=== PATIENT | male | born 1955 | race Caucasian/White ===

== ENCOUNTER → 2018-08-09 13:23 | Outpatient (CLI) | payer MEDICARE, SELFPAY ==
[2018-08-09 16:06] LABS: Alanine Aminotransferase 24 IU/L (21-72); Albumin 4.4 g/dL (3.5-5.0); Albumin Globulin Ratio 1.4 (1.0-2.8); Alkaline Phosphatase 64 U/L (38-126); Aspartate Aminotransferase 20 IU/L (17-59); BUN Creatinine Ratio 22.7 (6-22); Bilirubin Total 0.5 mg/dL (0.2-1.3); Blood Urea Nitrogen 34 mg/dL (9-20); Calcium 9.4 mg/dL (8.4-10.2); Carbon Dioxide 30 mmol/L (22-32); Chloride 100 mmol/L (98-107); Estimated Glomerular Filt Rate 47.4 mL/min (>60); Globulin 3.1 g/dL (1.7-4.1); Glucose 83 mg/dL (80-110); HEMOLYSIS < 15 (0-50); Potassium 4.5 mmol/L (3.4-5.1); Sodium 142 mmol/L (137-145); Total Protein 7.5 g/dL (6.3-8.2)
== END ==
PROVIDERS: PCP Internal Medicine
DX: I25.10 Atherosclerotic heart disease of native coronary artery without angina pectoris (principal); I50.23 Acute on chronic systolic (congestive) heart failure
CPT/HCPCS: 36415; 80053

== ENCOUNTER → 2018-12-13 13:34 | Outpatient (CLI) | payer MEDICARE, SELFPAY ==
[2018-12-13 14:28] LABS: Add Manual Diff / Slide Review NO; Basophils Absolute Auto 100 /uL (0-100); Basophils Percent Auto 0.9 % (0-2); Eosinophils Absolute Auto 300 /uL (0-450); Eosinophils Percent Auto 3.3 % (2-4); Hematocrit 40.8 % (41-53); Lymphocytes Absolute Auto 1800 /uL (1100-4500); Lymphocytes Percent Auto 22.4 % (25-40); Mean Corpuscular HGB Conc 34.3 % (30-36); Mean Corpuscular Hemoglobin 30.6 PG (26-34); Mean Corpuscular Volume 89.2 fL (80-100); Monocytes Absolute Auto 500 /uL (0-900); Monocytes Percent Auto 6.4 % (3-14); Neutrophils Absolute Auto 5300 /uL (1500-7000); Platelet Count 241 X10^3/uL (150-400); Red Blood Cell Count 4.57 X10^6/uL (4.5-5.9); Red Cell Distribution Width 12.6 % (11.6-14.8); White Blood Cell Count 7.9 X10^3/uL (4.5-11.0)
[2018-12-13 14:41] LABS: Alanine Aminotransferase 28 IU/L (21-72); Albumin 4.5 g/dL (3.5-5.0); Albumin Globulin Ratio 1.4 (1.0-2.8); Alkaline Phosphatase 64 U/L (38-126); Aspartate Aminotransferase 19 IU/L (17-59); BUN Creatinine Ratio 17.3 (6-22); Bilirubin Total 0.5 mg/dL (0.2-1.3); Blood Urea Nitrogen 26 mg/dL (9-20); Calcium 9.2 mg/dL (8.4-10.2); Carbon Dioxide 28 mmol/L (22-32); Chloride 101 mmol/L (98-107); Estimated Glomerular Filt Rate 47.4 mL/min (>60); Globulin 3.2 g/dL (1.7-4.1); Glucose 101 mg/dL (80-110); HEMOLYSIS < 15 (0-50); Potassium 4.2 mmol/L (3.4-5.1); Sodium 140 mmol/L (137-145); Total Protein 7.7 g/dL (6.3-8.2)
== END ==
PROVIDERS: Visit Provider Internal Medicine
DX: I50.22 Chronic systolic (congestive) heart failure (principal)
CPT/HCPCS: 36415; 80053; 85025

== ENCOUNTER → 2020-04-26 15:24 | Outpatient (CLI) | payer MEDICARE, SELFPAY ==
[2020-04-26 17:26] LABS: Alanine Aminotransferase 29 IU/L (<50); Albumin 4.2 g/dL (3.5-5.0); Albumin Globulin Ratio 1.4 (1.0-2.8); Alkaline Phosphatase 65 U/L (38-126); Aspartate Aminotransferase 32 IU/L (17-59); BUN Creatinine Ratio 19.7 (6-22); Bilirubin Total 0.4 mg/dL (0.2-1.3); Blood Urea Nitrogen 24 mg/dL (9-20); Calcium 9.4 mg/dL (8.4-10.2); Carbon Dioxide 25 mmol/L (22-32); Chloride 102 mmol/L (98-107); Estimated Glomerular Filt Rate 59.8 mL/min (>60); Globulin 3.1 g/dL (1.7-4.1); Glucose 104 mg/dL (80-110); HEMOLYSIS < 15 (0-50); Magnesium 2.2 mg/dL (1.6-2.3); Sodium 137 mmol/L (137-145); Total Protein 7.3 g/dL (6.3-8.2)
== END ==
PROVIDERS: Referring Provider Internal Medicine Clinical Cardiac Electrophysiology; Visit Provider Internal Medicine Clinical Cardiac Electrophysiology
DX: Z95.810 Presence of automatic (implantable) cardiac defibrillator (principal); I48.19 Other persistent atrial fibrillation
CPT/HCPCS: 36415; 80053; 83735

== ENCOUNTER → 2020-09-25 15:33 | Outpatient (CLI) | payer MEDICARE, SELFPAY ==
[2020-09-25 16:35] LABS: COVID19 -Nasal RAPID Negative (Negative)
== END ==
PROVIDERS: Visit Provider Physician Assistant
DX: Z11.59 Encounter for screening for other viral diseases (principal)
CPT/HCPCS: 87635

== ENCOUNTER → 2020-12-16 10:10 | Outpatient (CLI) | payer MEDICARE, SELFPAY ==
[2020-12-16 13:53] LABS: COVID19 -Nasal RAPID Negative (Negative)
== END ==
PROVIDERS: Visit Provider Nurse Practitioner
DX: Z01.812 Encounter for preprocedural laboratory examination (principal); Z20.822 Contact with and (suspected) exposure to COVID-19
CPT/HCPCS: 87635; C9803

== ENCOUNTER → 2021-01-01 12:13 | Outpatient (CLI) | payer MEDICARE, SELFPAY ==
[2021-01-01] MEDS: COVID-19 VACC #1, MRNA(MOD) 100 MCG/0.5 ML VIAL IM (12:20)
== END ==
PROVIDERS: Visit Provider Internal Medicine
DX: Z23 Encounter for immunization (principal)
CPT/HCPCS: 0011A; 91301

== ENCOUNTER → 2021-01-29 12:08 | Outpatient (CLI) | payer MEDICARE, SELFPAY ==
[2021-01-29] MEDS: COVID-19 VACC #2, MRNA(MOD) 100 MCG/0.5 ML VIAL IM (12:23)
== END ==
PROVIDERS: Visit Provider Internal Medicine
DX: Z23 Encounter for immunization (principal)
CPT/HCPCS: 0012A; 91301

== ENCOUNTER 2021-03-06 10:30 | Outpatient (RCR) | payer MEDICARE, SELFPAY | END 2021-03-06 11:34 | LOC: CAR 10:30 | PROVIDERS: Referring Provider Internal Medicine; Visit Provider Internal Medicine | DX: I50.20 Unspecified systolic (congestive) heart failure (principal); Z95.5 Presence of coronary angioplasty implant and graft | CPT/HCPCS: 93798 ==

== ENCOUNTER → 2021-09-05 09:57 | Outpatient (CLI) | payer MEDICARE, SELFPAY ==
[2021-09-05 12:28] LABS: Alanine Aminotransferase 16 IU/L (<50); Albumin 4.4 g/dL (3.5-5.0); Albumin Globulin Ratio 1.3 (1.0-2.8); Alkaline Phosphatase 62 U/L (38-126); Aspartate Aminotransferase 27 IU/L (17-59); BUN Creatinine Ratio 24.3 (6-22); Bilirubin Total 0.9 mg/dL (0.2-1.3); Blood Urea Nitrogen 35 mg/dL (9-20); Calcium 9.5 mg/dL (8.4-10.2); Carbon Dioxide 29 mmol/L (22-32); Chloride 102 mmol/L (98-107); Estimated Glomerular Filt Rate 49.2 mL/min (>60); Globulin 3.3 g/dL (1.7-4.1); Glucose 94 mg/dL (80-110); HEMOLYSIS < 15 (0-50); Potassium 4.8 mmol/L (3.4-5.1); Sodium 138 mmol/L (137-145); Total Protein 7.7 g/dL (6.3-8.2)
[2021-09-05 12:35] LABS: Add Manual Diff / Slide Review NO; Basophils Absolute Auto 0 /uL (0-100); Basophils Percent Auto 0.8 % (0-2); Eosinophils Absolute Auto 100 /uL (0-450); Eosinophils Percent Auto 2.2 % (2-4); Hematocrit 41.2 % (41-53); Lymphocytes Absolute Auto 1600 /uL (1100-4500); Lymphocytes Percent Auto 25.7 % (25-40); Mean Corpuscular HGB Conc 33.9 % (30-36); Mean Corpuscular Hemoglobin 31.1 PG (26-34); Mean Corpuscular Volume 91.9 fL (80-100); Monocytes Absolute Auto 500 /uL (0-900); Monocytes Percent Auto 8.9 % (3-14); Neutrophils Absolute Auto 3800 /uL (1500-7000); Neutrophils Percent Auto 62.4 % (50-75); Platelet Count 197 X10^3/uL (150-400); Red Blood Cell Count 4.49 X10^6/uL (4.5-5.9); Red Cell Distribution Width 13.6 % (11.6-14.8); White Blood Cell Count 6.1 X10^3/uL (4.5-11.0)
== END ==
PROVIDERS: Referring Provider Internal Medicine; Visit Provider Internal Medicine
DX: I48.20 Chronic atrial fibrillation, unspecified (principal); I50.22 Chronic systolic (congestive) heart failure
CPT/HCPCS: 36415; 80053; 84443; 85025

== ENCOUNTER → 2022-07-13 11:23 | Outpatient (CLI) | payer OTHER, SELFPAY ==
--- NOTE | 2022-07-13 11:25 | DI.RAD.S_ITS ---
PROCEDURE: XR CHEST 2V INDICATIONS: Chest congestion TECHNIQUE: 2 views of the chest were acquired. COMPARISON: [facility], , CHEST 2 VIEW, 08/26/2013, 21:47. FINDINGS: Surgical changes and devices: Left chest wall pacemaker leads are in the region of right ventricle and left ventricle. Lungs and pleura: Mild pulmonary vascular congestion is seen. No definite focal infiltrate. No pleural effusions or pneumothorax. Mediastinum: Mediastinal contours are normal. Heart size is enlarged. Bones and chest wall: No suspicious bony abnormalities. Soft tissues appear unremarkable. IMPRESSION: Cardiomegaly and mild congestion. No definite focal infiltrate, pleural effusion or pneumothorax. Dictated by: Raul Keys M.D. on 07/13/2022 at 13:31 Approved by: Raul Keys M.D. on 07/13/2022 at 13:39
== END ==
PROVIDERS: Referring Provider Nurse Practitioner Family; Visit Provider Nurse Practitioner Family
DX: R05.9 Cough, unspecified (principal); I51.7 Cardiomegaly; R09.89 Other specified symptoms and signs involving the circulatory and respiratory systems; Z95.0 Presence of cardiac pacemaker
CPT/HCPCS: 71046

== ENCOUNTER 2023-06-26 19:43 | Emergency (ER) | payer OTHER, SELFPAY ==
[2023-06-26 20:00] VITALS: BP 120/60; PULSE 69; RESP 22; TEMP 36.8; O2SAT 100; BMI 24.1
[2023-06-26 20:30] VITALS: PULSE 69; RESP 18; O2SAT 99
--- NOTE | 2023-06-26 21:00 | PC.NURSE ---
[facility] Medical Interrogation report received via phone. It was reported that pt went into VF at 1910 tonight and was immediately shocked by pacer/defibrillator, returning him to a NSR.
[2023-06-26] MEDS: SODIUM CHLORIDE 0.9% 1,000 ML 150 ML IV (21:03)
[2023-06-26 21:06] LABS: Add Manual Diff / Slide Review NO; Basophils Absolute Auto 100 /uL (0-100); Basophils Percent Auto 1.2 % (0-2); Eosinophils Absolute Auto 200 /uL (0-450); Eosinophils Percent Auto 2.5 % (2-4); Hemoglobin 12.6 g/dL (13.5-17.5); Lymphocytes Absolute Auto 1000 /uL (1100-4500); Lymphocytes Percent Auto 13.5 % (25-40); Mean Corpuscular HGB Conc 34.2 % (30-36); Mean Corpuscular Volume 90.6 fL (80-100); Monocytes Absolute Auto 800 /uL (0-900); Monocytes Percent Auto 10.8 % (3-14); Neutrophils Absolute Auto 5200 /uL (1500-7000); Platelet Count 202 X10^3/uL (150-400); Red Blood Cell Count 4.08 X10^6/uL (4.5-5.9); Red Cell Distribution Width 14.2 % (11.6-14.8); White Blood Cell Count 7.2 X10^3/uL (4.5-11.0)
[2023-06-26 21:15] LABS: Magnesium 2.1 mg/dL (1.6-2.3)
[2023-06-26 21:16] LABS: BUN Creatinine Ratio 26.2 (6-22); Blood Urea Nitrogen 33 mg/dL (9-20); Calcium 8.3 mg/dL (8.4-10.2); Carbon Dioxide 20 mmol/L (22-32); Chloride 104 mmol/L (98-107); Estimated Glomerular Filt Rate > 60 mL/min (>60); Glucose 109 mg/dL (80-110); HEMOLYSIS < 15 (0-50); Potassium 3.8 mmol/L (3.4-5.1); Sodium 135 mmol/L (137-145)
[2023-06-26 21:28] LABS: Troponin I 0.042 ng/mL (0.01-0.034)
--- NOTE | 2023-06-26 21:55 | ED_ITS ---
HPI - General Adult General Chief complaint: Dizziness Stated complaint: passed out, pacemaker is going off Time Seen by Provider: 06/26/23 20:34 Source: patient Mode of arrival: Ambulatory History of Present Illness HPI narrative: 68-year-old male. Has a defibrillator/pacemaker in place. He states he was standing in a local restaurant waiting to watch something on TV when he states he just generally started to not feel very well in the next thing he knows he was passed out on the ground. He thinks that his defibrillator went off. Prior to passing out he was not having chest pain or shortness of breath or lightheadedness. This has happened to him in the past. He was brought to the emergency department by his girlfriend. At the time of my evaluation the patient is asymptomatic. Related Data Home Medications Medication Instructions Recorded Confirmed No Known Home Medications 07/13/22 07/13/22 Allergies Allergy/AdvReac Type Severity Reaction Status Date / Time No Known Drug Allergies Allergy Unverified 07/13/22 11:09 Review of Systems Cardiovascular Cardiovascular: Reports system reviewed and no additional complaints, except as documented Respiratory Respiratory: Reports system reviewed and no additional complaints, except as documented Gastrointestinal Gastrointestinal: Reports system reviewed and no additional complaints, except as documented Integumentary/Breasts Skin/Breast: Reports system reviewed and no additional complaints, except as documented Patient History Social History Smoking Status: Never smoker Smoking Status: Never smoker alcohol intake frequency: 0-2 drinks per day Alcohol type: beer Substance Use Type: marijuana Exam Initial Vital Signs Initial Vital Signs: Vital Signs Temperature 98.2 F 06/26/23 20:00 Pulse Rate 69 06/26/23 20:00 Respiratory Rate 22 06/26/23 20:00 Blood Pressure 120/60 06/26/23 20:00 Pulse Oximetry 100 06/26/23 20:00 Oxygen Delivery Method Room Air 06/26/23 20:00 Const General: cooperative, comfortable and No ill appearing Resp Effort & Inspection: normal respiratory effort Auscultation: clear to auscultation bilaterally Cardio Rate: regular rate Rhythm: regular rhythm Heart Sounds: murmur Skin General: no rashes or lesions noted Neuro General: patient alert, patient awake and moves all extremities Course Orders Ordered: ED Orders 06/26/23 20:08 EKG-12 Lead Stat 06/26/23 20:49 Basic Metabolic Panel Stat Complete Blood Count AUTO DIFF Stat MAG [Magnesium] Stat Troponin I Stat Discontinued Medications Sodium Chloride (Normal Saline 0.9%) 1,000 mls @ 150 mls/hr IV CONT NEISHA Last Admin: 06/26/23 21:03 Dose: 150 mls/hr Documented By: AMITA Vital Signs Vital signs: Vital Signs - 8 hr 06/26/23 20:00 06/26/23 20:30 06/26/23 22:19 Temperature 98.2 F Pulse Rate 69 69 69 Respiratory Rate 22 18 16 Blood Pressure 120/60 118/84 Pulse Oximetry 100 99 99 Oxygen Delivery Method Room Air Room Air Room Air Medical Decision Making Lab Data 06/26/23 20:49 06/26/23 20:49 Labs: Lab Results 06/26/23 06/26/23 06/26/23 Range/Units 20:49 20:49 20:49 WBC 7.2 (4.5-11.0) X10^3/uL RBC 4.08 L (4.5-5.9) X10^6/uL Hgb 12.6 L (13.5-17.5) g/dL Hct 37.0 L (41-53) % MCV 90.6 (80-100) fL MCH 31.0 (26-34) PG MCHC 34.2 (30-36) % RDW 14.2 (11.6-14.8) % Plt Count 202 (150-400) X10^3/uL Neut % (Auto) 72.0 (50-75) % Lymph % (Auto) 13.5 L (25-40) % [place] % (Auto) 10.8 (3-14) % Eos % (Auto) 2.5 (2-4) % Baso % (Auto) 1.2 (0-2) % Neut # (Auto) 5200 (8349-2655) /uL Lymph # (Auto) 1000 L (4398-7537) /uL [place] # (Auto) 800 (0-900) /uL Eos # (Auto) 200 (0-450) /uL Baso # (Auto) 100 (0-100) /uL Sodium 135 L (137-145) mmol/L Potassium 3.8 (3.4-5.1) mmol/L Chloride 104 (98-107) mmol/L Carbon Dioxide 20 L (22-32) mmol/L BUN 33 H (9-20) mg/dL Creatinine 1.26 H (0.66-1.25) mg/dL Estimated GFR > 60 (>60) mL/min BUN/Creatinine Ratio 26.2 H (6-22) Glucose 109 (80-110) mg/dL Calcium 8.3 L (8.4-10.2) mg/dL Magnesium 2.1 (1.6-2.3) mg/dL Troponin I 0.042 H (0.01-0.034) ng/mL ECG Data Attestation: I personally reviewed and interpreted this ECG as follows: Interpretation: Ventricularly paced Rate is 70 MDM Narrative Medical decision making narrative: We were able to interrogate the patient's pacemaker and he did have a episode of ventricular fibrillation that was converted with 36 joules. It appears that the defibrillator is working appropriately. Patient is asymptomatic. His labs are unremarkable. No indication to change any of his medications today. Will discharge patient home with instructions to follow-up with his primary provider. He was given return precautions he expressed understanding and agreement with plan. Discharge Plan Departure Patient Disposition: Home Clinical Impression: Defibrillator discharge Activity Restrictions/Additional Instructions: I recommend that you continue to take all of your medications as directed. You did have a discharge of your defibrillator earlier today but it is working appropriately. Contact your primary doctor and your senior research project manager for follow-up. Return to the emergency department for new or worsening symptoms. Prescriptions: No Action No Known Home Medications Referrals: Miscellaneous,MD Isaias [Primary Care Provider] - Stand Alone Forms: Patient Portal/API
[2023-06-26 22:19] VITALS: BP 118/84; PULSE 69; RESP 16; O2SAT 99
== END 2023-06-26 22:23 | disposition home or self-care (01) ==
PROVIDERS: Emergency Provider Emergency Medicine
DX: R55 Syncope and collapse (principal); Z45.02 Encounter for adjustment and management of automatic implantable cardiac defibrillator; R79.89 Other specified abnormal findings of blood chemistry
CPT/HCPCS: 36415; 80048; 83735; 84484; 85025; 93005; 93010; 99284

== ENCOUNTER → 2023-09-22 10:51 | Outpatient (CLI) | payer OTHER, SELFPAY ==
[2023-09-22 11:53] LABS: Alanine Aminotransferase 32 IU/L (<50); Albumin 3.7 g/dL (3.5-5.0); Alkaline Phosphatase 134 U/L (38-126); Aspartate Aminotransferase 29 IU/L (17-59); BUN Creatinine Ratio 21.4 (6-22); Bilirubin Total 2.2 mg/dL (0.2-1.3); Blood Urea Nitrogen 36 mg/dL (9-20); Calcium 9.2 mg/dL (8.4-10.2); Carbon Dioxide 25 mmol/L (22-32); Chloride 102 mmol/L (98-107); Estimated Glomerular Filt Rate 44 mL/min (>60); Globulin 3.8 g/dL (1.7-4.1); Glucose 112 mg/dL (80-110); HEMOLYSIS < 15 (0-50); Potassium 4.4 mmol/L (3.4-5.1); Sodium 137 mmol/L (137-145); Total Protein 7.5 g/dL (6.3-8.2)
== END ==
PROVIDERS: Referring Provider Internal Medicine; Visit Provider Internal Medicine
DX: I50.22 Chronic systolic (congestive) heart failure (principal)
CPT/HCPCS: 36415; 80053

== ENCOUNTER 2023-12-06 16:37 | Emergency (ER) | payer OTHER, SELFPAY ==
[2023-12-06] VITALS (80 sets, daily range): BP systolic 101–133; BP diastolic 55–85; PULSE 68–80; RESP 10–45; TEMP 29.9–37.1; O2SAT 87–100
--- NOTE | 2023-12-06 17:01 | DI.RAD.S_ITS ---
PROCEDURE: XR CHEST 1V INDICATIONS: chest pain TECHNIQUE: One view of the chest was acquired. COMPARISON: [facility], , XR CHEST 2V, 07/13/2022, 11:29. [facility], , CHEST 2 VIEW, 08/26/2013, 21:47. FINDINGS: Surgical changes and devices: Left chest wall pacemaker Lungs and pleura: Moderate bilateral pleural effusions with adjacent atelectasis versus consolidation. Mediastinum: Atherosclerotic vascular calcifications of the aorta. Heart size is enlarged. Bones and chest wall: No suspicious bony lesions. Overlying soft tissues appear unremarkable. IMPRESSION: Moderate bilateral pleural effusions with adjacent atelectasis versus consolidation. Ill-defined partially lucent opacity within the right medial lung field adjacent to the mediastinum, likely representing a pulmonary opacity, pneumomediastinum is not definitively excluded and clinical correlation is recommended. Dictated by: Sergio Gonzalez M.D. on 12/06/2023 at 17:42 Approved by: Sergio Gonzalez M.D. on 12/06/2023 at 17:45
--- NOTE | 2023-12-06 17:10 | PC.NURSE ---
Pt is SOB and extremities are blue, slow cap refill of 4+ seconds. Pt's S/O at bedside states sometimes his nose is blue, but its worse today. History of Pacemaker/defibrillator and CHF. PT is A&Ox3. He denies chest pain or dizziness. He reports abdominal pain the past few days with a BM 3 days ago which was normal.
[2023-12-06] MEDS: SODIUM CHLORIDE 0.9% 500 ML 1000 ML IV (17:19)
[2023-12-06 17:28] LABS: Lactate (Lactic Acid) 3.2 mmol/L (0.7-2.1)
[2023-12-06 17:29] LABS: Alanine Aminotransferase 35 IU/L (<50); Albumin Globulin Ratio 0.8 (1.0-2.8); Alkaline Phosphatase 134 U/L (38-126); Aspartate Aminotransferase 35 IU/L (17-59); BUN Creatinine Ratio 23.1 (6-22); Bilirubin Total 3.7 mg/dL (0.2-1.3); Blood Urea Nitrogen 48 mg/dL (9-20); Calcium 9.6 mg/dL (8.4-10.2); Carbon Dioxide 22 mmol/L (22-32); Chloride 99 mmol/L (98-107); Creatine Kinase 46 U/L (55-170); Estimated Glomerular Filt Rate 34 mL/min (>60); Globulin 4.8 g/dL (1.7-4.1); Glucose 148 mg/dL (80-110); HEMOLYSIS < 15 (0-50); Lipase 122 U/L (23-300); Potassium 4.8 mmol/L (3.4-5.1); Sodium 136 mmol/L (137-145); Total Protein 8.8 g/dL (6.3-8.2)
[2023-12-06 17:30] LABS: Add Manual Diff / Slide Review NO; Basophils Absolute Auto 0 /uL (0-100); Basophils Percent Auto 0.2 % (0-2); Eosinophils Absolute Auto 0 /uL (0-450); Eosinophils Percent Auto 0.1 % (2-4); Hematocrit 43.9 % (41-53); Hemoglobin 14.2 g/dL (13.5-17.5); Lymphocytes Absolute Auto 700 /uL (1100-4500); Lymphocytes Percent Auto 4.6 % (25-40); Mean Corpuscular HGB Conc 32.4 % (30-36); Mean Corpuscular Hemoglobin 28.5 PG (26-34); Monocytes Absolute Auto 1100 /uL (0-900); Monocytes Percent Auto 7.8 % (3-14); Neutrophils Absolute Auto 12300 /uL (1500-7000); Neutrophils Percent Auto 87.3 % (50-75); Platelet Count 262 X10^3/uL (150-400); Red Blood Cell Count 4.99 X10^6/uL (4.5-5.9); Red Cell Distribution Width 15.7 % (11.6-14.8); White Blood Cell Count 14.2 X10^3/uL (4.5-11.0)
[2023-12-06 17:34] LABS: Prothrombin Time 46.2 SECONDS (9.4-12.5)
[2023-12-06 17:37] LABS: PTT Partial Thromboplastin Tim 51 SECONDS (25.1-36.5)
[2023-12-06 17:38] LABS: NT-proBNP (BNP-Adult 18+) 15800 pg/mL (<125)
[2023-12-06 17:41] LABS: Troponin I 0.067 ng/mL (0.01-0.034)
[2023-12-06 17:46] LABS: Procalcitonin 1.88 ng/mL (<0.5)
[2023-12-06 18:08] LABS: PCO2 ABG 50.5 mmHg (35-45); pH ABG 7.35 (7.35-7.45)
[2023-12-06 18:09] LABS: Blood Gas Collection Site Right Brachial; Fractionated Inspired Oxygen 36; HCO3 ABG 28 mmol/L (23-27); Oxygen Saturation ABG 13 % (95-100); TCO2 ABG 29 mmol/L (23-27)
[2023-12-06 18:10] LABS: PO2 ABG 13 mmHg (80-100)
[2023-12-06 18:13] LABS: Ammonia (NH3) < 9 umol/L (9-30)
[2023-12-06 18:15] LABS: Adenovirus Not Detected (Not Detect); B. parapertussis Not Detected (Not Detecte); Bordetella pertussis Not Detected (Not Detect); Chlamydophila pneumoniae Not Detected (Not Detect); Coronavirus 229E Not Detected (Not Detect); Coronavirus HKU1 Not Detected (Not Detect); Coronavirus NL 63 Not Detected (Not Detect); Coronavirus OC43 Not Detected (Not Detect); Human Metapneumovirus Not Detected (Not Detect); Human Rhinovirus/Enterovirus Not Detected (Not Detect); Influenza A Not Detected (Not Detect); Influenza B Not Detected (Not Detect); Mycoplasma pneumoniae Not Detected (Not Detect); Parainfluenza Virus 1 Not Detected (Not Detect); Parainfluenza Virus 2 Not Detected (Not Detect); Parainfluenza Virus 3 Not Detected (Not Detect); Parainfluenza Virus 4 Not Detected (Not Detect); Respiratory Syncytial Virus Not Detected (Not Detect); SARS- CoV-2 Not Detected (Not Detecte)
--- NOTE | 2023-12-06 18:27 | PC.NURSE ---
Pt pulling at his bipap mask and moved it off his face. I encouraged pt he needs to keep the bipap mask on. Pt states its breathing too hard into me. RT consulted after pt removing his mask multiple times. Pt is refusing to apply bipap mask back onto his face stating hes never had issues with oxygen before. RT placing patient back on nasal flow end tital monitoring.
[2023-12-06 18:57] LABS: Reflexed Lactate in 2 Hours Y
--- NOTE | 2023-12-06 19:07 | ED_ITS ---
HPI - SOB/Dyspnea General Chief Complaint: Shortness of Breath/Dyspnea Stated Complaint: SOB, Heart Failure Time Seen by Provider: 12/06/23 17:01 Source: patient and family Mode of arrival: Wheelchair Limitations: no limitations Related Data Home Medications Medication Instructions Recorded Confirmed No Known Home Medications 07/13/22 07/13/22 Allergies Allergy/AdvReac Type Severity Reaction Status Date / Time No Known Drug Allergies Allergy Verified 12/06/23 18:00 Patient History Social History Smoking Status: Never smoker Smoking Status: Never smoker alcohol intake frequency: 0-2 drinks per day Alcohol type: beer Substance Use Type: marijuana Exam Initial Vital Signs Initial Vital Signs: Vital Signs Temperature 98.8 F 12/06/23 16:52 Pulse Rate 72 12/06/23 16:52 Respiratory Rate 26 H 12/06/23 16:52 Blood Pressure 114/70 12/06/23 16:52 Pulse Oximetry 87 L 12/06/23 16:52 Oxygen Delivery Method Room Air 12/06/23 16:52 Course Orders Ordered: ED Orders 12/06/23 17:01 XR chest 1V Stat EKG-12 Lead Stat 12/06/23 17:06 Blood Culture Stat Complete Blood Count AUTO DIFF Stat Comprehensive Metabolic Panel Stat Lactate (Lactic Acid) Stat Lipase Stat NT-proBNP (BNP-Adult 18+) Stat PTT Partial Thromboplastin Lito Stat Procalcitonin Stat Prothrombin Time INR Stat Troponin & CK Cardiac Panel Stat 12/06/23 17:15 Respiratory Panel (Film Array) Stat 12/06/23 17:45 ABG [Arterial Blood Gas] Stat 12/06/23 17:57 Ammonia (NH3) Stat 12/06/23 18:00 BiPAP Ventilatory Support RT PROTOCOL 12/06/23 18:54 High flow/High humidity nasal NOW 12/06/23 20:18 Urinalysis and Microscopic Stat urine tox [Urine Drug Screen, Rapid] Stat 12/06/23 21:11 Venous Blood Gas Stat Discontinued Medications Sodium Chloride (Normal Saline 0.9%) 500 mls @ 1,000 mls/hr IV BOLUS ONE Stop: 12/06/23 17:43 Last Infusion: 12/06/23 18:50 Dose: Infused Documented By: Admin: 12/06/23 17:19 Dose: 1,000 mls/hr Documented By: SPF Furosemide 60 mg/ Sodium (Chloride) 56 mls @ 112 mls/hr IV NOW ONE Stop: 12/06/23 19:08 Last Infusion: 12/06/23 19:32 Dose: Infused Documented By: Admin: 12/06/23 19:15 Dose: 112 mls/hr Documented By: CLARE Vital Signs Vital signs: Vital Signs - 8 hr 12/06/23 16:52 12/06/23 17:22 12/06/23 17:26 Temperature 98.8 F Pulse Rate 72 69 Respiratory Rate 26 H 28 H Blood Pressure 114/70 101/69 Pulse Oximetry 87 L 90 L Oxygen Delivery Method Room Air Nasal Cannula Oxygen Flow Rate 2 Fraction of Inspired Oxygen 12/06/23 17:26 12/06/23 17:30 12/06/23 17:30 Temperature Pulse Rate 69 69 Respiratory Rate 32 H 27 H Blood Pressure 103/72 Pulse Oximetry 93 89 L Oxygen Delivery Method Nasal Cannula Nasal Cannula Oxygen Flow Rate 4 4 Fraction of Inspired Oxygen 12/06/23 17:35 12/06/23 17:35 12/06/23 17:40 Temperature Pulse Rate 69 69 Respiratory Rate 27 H 23 Blood Pressure 104/70 Pulse Oximetry 90 L 87 L Oxygen Delivery Method Nasal Cannula Oxygen Flow Rate 4 Fraction of Inspired Oxygen 12/06/23 17:40 12/06/23 17:45 12/06/23 17:45 Temperature Pulse Rate 69 Respiratory Rate 31 H Blood Pressure 112/72 106/73 Pulse Oximetry 89 L Oxygen Delivery Method Nasal Cannula Oxygen Flow Rate 5 Fraction of Inspired Oxygen 12/06/23 17:50 12/06/23 17:50 12/06/23 17:55 Temperature Pulse Rate 69 Respiratory Rate 25 H Blood Pressure 115/80 115/78 Pulse Oximetry Oxygen Delivery Method Oxygen Flow Rate Fraction of Inspired Oxygen 12/06/23 17:55 12/06/23 18:00 12/06/23 18:00 Temperature Pulse Rate 70 70 Respiratory Rate 26 H 25 H Blood Pressure 115/80 Pulse Oximetry 98 98 Oxygen Delivery Method BiPAP Oxygen Flow Rate Fraction of Inspired Oxygen 35 12/06/23 18:00 12/06/23 18:05 12/06/23 18:05 Temperature Pulse Rate 69 Respiratory Rate 26 H Blood Pressure 117/78 117/78 Pulse Oximetry 98 Oxygen Delivery Method Oxygen Flow Rate Fraction of Inspired Oxygen 12/06/23 18:10 12/06/23 18:10 12/06/23 18:15 Temperature Pulse Rate 69 Respiratory Rate 24 Blood Pressure 115/78 115/79 Pulse Oximetry 94 Oxygen Delivery Method BiPAP Oxygen Flow Rate Fraction of Inspired Oxygen 12/06/23 18:15 12/06/23 18:21 12/06/23 18:21 Temperature Pulse Rate 69 69 Respiratory Rate 25 H 27 H Blood Pressure 118/78 Pulse Oximetry 100 97 Oxygen Delivery Method BiPAP Oxygen Flow Rate Fraction of Inspired Oxygen 12/06/23 18:25 12/06/23 18:25 12/06/23 18:30 Temperature Pulse Rate 69 68 Respiratory Rate 32 H 28 H Blood Pressure 118/78 Pulse Oximetry 96 94 Oxygen Delivery Method BiPAP Nasal Cannula Oxygen Flow Rate Fraction of Inspired Oxygen 12/06/23 18:30 12/06/23 18:31 12/06/23 18:34 Temperature Pulse Rate Respiratory Rate Blood Pressure 112/68 Pulse Oximetry 94 95 Oxygen Delivery Method Nasal Cannula Nasal Cannula Oxygen Flow Rate 4 4 Fraction of Inspired Oxygen 12/06/23 18:35 12/06/23 18:35 12/06/23 18:40 Temperature Pulse Rate 68 Respiratory Rate 30 H Blood Pressure 115/79 116/71 Pulse Oximetry 91 Oxygen Delivery Method Oxygen Flow Rate Fraction of Inspired Oxygen 12/06/23 18:40 12/06/23 18:46 12/06/23 18:46 Temperature Pulse Rate 69 69 Respiratory Rate 17 24 Blood Pressure 116/77 Pulse Oximetry 88 L 91 Oxygen Delivery Method Oxygen Flow Rate Fraction of Inspired Oxygen 12/06/23 18:50 12/06/23 18:50 12/06/23 18:54 Temperature Pulse Rate 71 69 Respiratory Rate 25 H 28 H Blood Pressure 115/79 117/81 Pulse Oximetry 100 95 Oxygen Delivery Method Oxygen Flow Rate Fraction of Inspired Oxygen 12/06/23 18:55 12/06/23 18:55 12/06/23 19:00 Temperature Pulse Rate 69 69 Respiratory Rate 28 H 37 H Blood Pressure 117/81 Pulse Oximetry 97 96 Oxygen Delivery Method High Flow Nasal Cannula High Flow Nasal Cannula Oxygen Flow Rate 45 45 Fraction of Inspired Oxygen 12/06/23 19:00 12/06/23 19:05 12/06/23 19:05 Temperature Pulse Rate 69 Respiratory Rate 35 H Blood Pressure 115/78 112/74 Pulse Oximetry 96 Oxygen Delivery Method Oxygen Flow Rate Fraction of Inspired Oxygen 12/06/23 19:10 12/06/23 19:10 12/06/23 19:15 Temperature Pulse Rate 69 69 Respiratory Rate 22 30 H Blood Pressure 113/77 Pulse Oximetry 94 99 Oxygen Delivery Method High Flow Nasal Cannula Oxygen Flow Rate Fraction of Inspired Oxygen 12/06/23 19:15 12/06/23 19:20 12/06/23 19:20 Temperature Pulse Rate 69 Respiratory Rate 17 Blood Pressure 115/78 112/77 Pulse Oximetry 99 Oxygen Delivery Method Oxygen Flow Rate Fraction of Inspired Oxygen 12/06/23 19:25 12/06/23 19:25 12/06/23 19:30 Temperature Pulse Rate 69 Respiratory Rate 33 H Blood Pressure 111/81 116/76 Pulse Oximetry Oxygen Delivery Method Oxygen Flow Rate Fraction of Inspired Oxygen 12/06/23 19:30 12/06/23 19:35 12/06/23 19:35 Temperature Pulse Rate 69 69 Respiratory Rate 20 31 H Blood Pressure 115/78 Pulse Oximetry Oxygen Delivery Method Oxygen Flow Rate Fraction of Inspired Oxygen 12/06/23 19:40 12/06/23 19:40 12/06/23 19:50 Temperature Pulse Rate 69 69 Respiratory Rate 35 H 18 Blood Pressure 112/68 Pulse Oximetry 100 97 Oxygen Delivery Method High Flow Nasal Cannula Oxygen Flow Rate Fraction of Inspired Oxygen 12/06/23 19:50 12/06/23 19:55 12/06/23 19:55 Temperature Pulse Rate 69 Respiratory Rate 16 Blood Pressure 106/67 107/69 Pulse Oximetry 96 Oxygen Delivery Method Oxygen Flow Rate Fraction of Inspired Oxygen 12/06/23 20:00 12/06/23 20:00 12/06/23 20:05 Temperature Pulse Rate 69 Respiratory Rate 37 H Blood Pressure 112/71 119/77 Pulse Oximetry 94 Oxygen Delivery Method Oxygen Flow Rate Fraction of Inspired Oxygen 12/06/23 20:05 12/06/23 20:10 12/06/23 20:10 Temperature Pulse Rate 68 69 Respiratory Rate 11 L 35 H Blood Pressure 112/76 Pulse Oximetry 97 94 Oxygen Delivery Method Oxygen Flow Rate Fraction of Inspired Oxygen 12/06/23 20:15 12/06/23 20:15 Temperature Pulse Rate 69 Respiratory Rate 18 Blood Pressure 111/74 Pulse Oximetry 96 Oxygen Delivery Method Oxygen Flow Rate Fraction of Inspired Oxygen MDM - SOB/Dyspnea Lab Data 12/06/23 17:06 12/06/23 17:06 Labs: Lab Results 12/06/23 12/06/23 12/06/23 Range/Units 17:06 17:15 17:45 WBC 14.2 H (4.5-11.0) X10^3/uL RBC 4.99 (4.5-5.9) X10^6/uL Hgb 14.2 (13.5-17.5) g/dL Hct 43.9 (41-53) % MCV 88.0 (80-100) fL MCH 28.5 (26-34) PG MCHC 32.4 (30-36) % RDW 15.7 H (11.6-14.8) % Plt Count 262 (150-400) X10^3/uL Neut % (Auto) 87.3 H (50-75) % Lymph % (Auto) 4.6 L (25-40) % [place] % (Auto) 7.8 (3-14) % Eos % (Auto) 0.1 L (2-4) % Baso % (Auto) 0.2 (0-2) % Neut # (Auto) 25694 H (7455-0676) /uL Lymph # (Auto) 700 L (9080-4689) /uL [place] # (Auto) 1100 H (0-900) /uL Eos # (Auto) 0 (0-450) /uL Baso # (Auto) 0 (0-100) /uL PT 46.2 H (9.4-12.5) SECONDS INR 4.0 H (0.9-1.3) APTT 51 H (25.1-36.5) SECONDS ABG Sample Site Right brachial ABG pH 7.35 (7.35-7.45) ABG pCO2 50.5 H (35-45) mmHg ABG pO2 13 L* (80-100) mmHg ABG HCO3 28 H (23-27) mmol/L ABG Total CO2 29 H (23-27) mmol/L ABG O2 Saturation 13 L* (95-100) % ABG Base Excess 2.0 (-2-3) mmol/L FiO2 36 Sodium 136 L (137-145) mmol/L Potassium 4.8 (3.4-5.1) mmol/L Chloride 99 (98-107) mmol/L Carbon Dioxide 22 (22-32) mmol/L BUN 48 H (9-20) mg/dL Creatinine 2.08 H (0.66-1.25) mg/dL Estimated GFR 34 L (>60) mL/min BUN/Creatinine Ratio 23.1 H (6-22) Glucose 148 H (80-110) mg/dL Lactate 3.2 H (0.7-2.1) mmol/L Calcium 9.6 (8.4-10.2) mg/dL Total Bilirubin 3.7 H (0.2-1.3) mg/dL AST 35 (17-59) IU/L ALT 35 (<50) IU/L Alkaline Phosphatase 134 H (38-126) U/L Ammonia (9-30) umol/L Total Creatine Kinase 46 L (55-170) U/L Troponin I 0.067 H (0.01-0.034) ng/mL NT-Pro-B Natriuret Pep 12822 H (<125) pg/mL Total Protein 8.8 H (6.3-8.2) g/dL Albumin 4.0 (3.5-5.0) g/dL Globulin 4.8 H (1.7-4.1) g/dL Albumin/Globulin Ratio 0.8 L (1.0-2.8) Lipase 122 (23-300) U/L Procalcitonin 1.88 H (<0.5) ng/mL Urine Color Urine Appearance Urine pH (4.5-8.0) Ur Specific [place] (1.000-1.035) Urine Protein (Negative) Urine Glucose (UA) (Negative) g/dL Urine Ketones (NEGATIVE) Urine Occult Blood (Negative) Urine Nitrate (Negative) Urine Bilirubin (NEGATIVE) Urine Urobilinogen (0.2) E.U./dL Ur Leukocyte Esterase (NEGATIVE) Urine RBC (0-5/HPF) Urine WBC (0-5/HPF) Ur Squamous Epith Cells (0-5/HPF) Urine Bacteria (None) Hyaline Casts (None) Granular Casts (None) Urine Mucus (Negative) Ur Culture Indicated? Vol Urine Centrifuged U Opiates 300ng/mL cut (Negative) Ur Oxycodone Screen (Negative) Urine Methadone Screen (Negative) Ur Barbiturates Screen (Negative) U Tricyclic Antidepress (Negative) Ur Phencyclidine Scrn (Negative) Ur Amphetamines Screen (Negative) U Methamphetamines Scrn (Negative) Ur MDMA Scrn (Ecstasy) (Negative) U Benzodiazepines Scrn (Negative) Urine Cocaine Screen (Negative) U Marijuana (THC) Screen (Negative) Urine Specific [place] (Normal) Ur Creatinine (Normal) Chlamy pneumoniae PCR Not detected (Not Detect) Adenovirus (PCR) Not detected (Not Detect) B.parapertussis DNA PCR Not detected (Not Detecte) Coronavirus OC43 (PCR) Not detected (Not Detect) Coronavirus HKU1 (PCR) Not detected (Not Detect) Coronavirus 229E (PCR) Not detected (Not Detect) SARS-CoV-2 (PCR) Not detected (Not Detecte) Coronavirus NL63 (PCR) Not detected (Not Detect) Human Metapneumovir PCR Not detected (Not Detect) Influenza Type A (PCR) Not detected (Not Detect) Influenza Type B (PCR) Not detected (Not Detect) M. pneumoniae (PCR) Not detected (Not Detect) Parainfluenza 1 (PCR) Not detected (Not Detect) Parainfluenza 2 (PCR) Not detected (Not Detect) Parainfluenza 3 (PCR) Not detected (Not Detect) Parainfluenza 4 (PCR) Not detected (Not Detect) RSV (PCR) Not detected (Not Detect) Entero/Rhino (PCR) Not detected (Not Detect) 12/06/23 12/06/23 12/06/23 Range/Units 17:57 19:35 20:18 WBC (4.5-11.0) X10^3/uL RBC (4.5-5.9) X10^6/uL Hgb (13.5-17.5) g/dL Hct (41-53) % MCV (80-100) fL MCH (26-34) PG MCHC (30-36) % RDW (11.6-14.8) % Plt Count (150-400) X10^3/uL Neut % (Auto) (50-75) % Lymph % (Auto) (25-40) % [place] % (Auto) (3-14) % Eos % (Auto) (2-4) % Baso % (Auto) (0-2) % Neut # (Auto) (3836-7227) /uL Lymph # (Auto) (0169-5675) /uL [place] # (Auto) (0-900) /uL Eos # (Auto) (0-450) /uL Baso # (Auto) (0-100) /uL PT (9.4-12.5) SECONDS INR (0.9-1.3) APTT (25.1-36.5) SECONDS ABG Sample Site ABG pH (7.35-7.45) ABG pCO2 (35-45) mmHg ABG pO2 (80-100) mmHg ABG HCO3 (23-27) mmol/L ABG Total CO2 (23-27) mmol/L ABG O2 Saturation (95-100) % ABG Base Excess (-2-3) mmol/L FiO2 Sodium (137-145) mmol/L Potassium (3.4-5.1) mmol/L Chloride (98-107) mmol/L Carbon Dioxide (22-32) mmol/L BUN (9-20) mg/dL Creatinine (0.66-1.25) mg/dL Estimated GFR (>60) mL/min BUN/Creatinine Ratio (6-22) Glucose (80-110) mg/dL Lactate 2.5 H (0.7-2.1) mmol/L Calcium (8.4-10.2) mg/dL Total Bilirubin (0.2-1.3) mg/dL AST (17-59) IU/L ALT (<50) IU/L Alkaline Phosphatase (38-126) U/L Ammonia < 9 L (9-30) umol/L Total Creatine Kinase (55-170) U/L Troponin I (0.01-0.034) ng/mL NT-Pro-B Natriuret Pep (<125) pg/mL Total Protein (6.3-8.2) g/dL Albumin (3.5-5.0) g/dL Globulin (1.7-4.1) g/dL Albumin/Globulin Ratio (1.0-2.8) Lipase (23-300) U/L Procalcitonin (<0.5) ng/mL Urine Color [place] Urine Appearance Clear Urine pH 5.0 (4.5-8.0) Ur Specific [place] >=1.030 H (1.000-1.035) Urine Protein 1+ H (Negative) Urine Glucose (UA) Negative (Negative) g/dL Urine Ketones Negative (NEGATIVE) Urine Occult Blood Trace-intact (Negative) Urine Nitrate Negative (Negative) Urine Bilirubin Negative (NEGATIVE) Urine Urobilinogen 1.0 (0.2) E.U./dL Ur Leukocyte Esterase Negative (NEGATIVE) Urine RBC 0-1/hpf (0-5/HPF) Urine WBC 0-1/hpf (0-5/HPF) Ur Squamous Epith Cells 0-1 /hpf (0-5/HPF) Urine Bacteria Moderate (10-30) H (None) Hyaline Casts 5-10/lpf (None) Granular Casts 0-1/lpf (None) Urine Mucus 2+ H (Negative) Ur Culture Indicated? Cult not indicated Vol Urine Centrifuged 10ml (spun) U Opiates 300ng/mL cut Negative (Negative) Ur Oxycodone Screen Negative (Negative) Urine Methadone Screen Negative (Negative) Ur Barbiturates Screen Negative (Negative) U Tricyclic Antidepress Negative (Negative) Ur Phencyclidine Scrn Negative (Negative) Ur Amphetamines Screen Negative (Negative) U Methamphetamines Scrn Negative (Negative) Ur MDMA Scrn (Ecstasy) Negative (Negative) U Benzodiazepines Scrn Negative (Negative) Urine Cocaine Screen Negative (Negative) U Marijuana (THC) Screen Negative (Negative) Urine Specific [place] (Normal) Ur Creatinine (Normal) Chlamy pneumoniae PCR (Not Detect) Adenovirus (PCR) (Not Detect) B.parapertussis DNA PCR (Not Detecte) Coronavirus OC43 (PCR) (Not Detect) Coronavirus HKU1 (PCR) (Not Detect) Coronavirus 229E (PCR) (Not Detect) SARS-CoV-2 (PCR) (Not Detecte) Coronavirus NL63 (PCR) (Not Detect) Human Metapneumovir PCR (Not Detect) Influenza Type A (PCR) (Not Detect) Influenza Type B (PCR) (Not Detect) M. pneumoniae (PCR) (Not Detect) Parainfluenza 1 (PCR) (Not Detect) Parainfluenza 2 (PCR) (Not Detect) Parainfluenza 3 (PCR) (Not Detect) Parainfluenza 4 (PCR) (Not Detect) RSV (PCR) (Not Detect) Entero/Rhino (PCR) (Not Detect) 12/06/23 Range/Units 20:18 WBC (4.5-11.0) X10^3/uL RBC (4.5-5.9) X10^6/uL Hgb (13.5-17.5) g/dL Hct (41-53) % MCV (80-100) fL MCH (26-34) PG MCHC (30-36) % RDW (11.6-14.8) % Plt Count (150-400) X10^3/uL Neut % (Auto) (50-75) % Lymph % (Auto) (25-40) % [place] % (Auto) (3-14) % Eos % (Auto) (2-4) % Baso % (Auto) (0-2) % Neut # (Auto) (4697-1507) /uL Lymph # (Auto) (0565-9909) /uL [place] # (Auto) (0-900) /uL Eos # (Auto) (0-450) /uL Baso # (Auto) (0-100) /uL PT (9.4-12.5) SECONDS INR (0.9-1.3) APTT (25.1-36.5) SECONDS ABG Sample Site ABG pH (7.35-7.45) ABG pCO2 (35-45) mmHg ABG pO2 (80-100) mmHg ABG HCO3 (23-27) mmol/L ABG Total CO2 (23-27) mmol/L ABG O2 Saturation (95-100) % ABG Base Excess (-2-3) mmol/L FiO2 Sodium (137-145) mmol/L Potassium (3.4-5.1) mmol/L Chloride (98-107) mmol/L Carbon Dioxide (22-32) mmol/L BUN (9-20) mg/dL Creatinine (0.66-1.25) mg/dL Estimated GFR (>60) mL/min BUN/Creatinine Ratio (6-22) Glucose (80-110) mg/dL Lactate (0.7-2.1) mmol/L Calcium (8.4-10.2) mg/dL Total Bilirubin (0.2-1.3) mg/dL AST (17-59) IU/L ALT (<50) IU/L Alkaline Phosphatase (38-126) U/L Ammonia (9-30) umol/L Total Creatine Kinase (55-170) U/L Troponin I (0.01-0.034) ng/mL NT-Pro-B Natriuret Pep (<125) pg/mL Total Protein (6.3-8.2) g/dL Albumin (3.5-5.0) g/dL Globulin (1.7-4.1) g/dL Albumin/Globulin Ratio (1.0-2.8) Lipase (23-300) U/L Procalcitonin (<0.5) ng/mL Urine Color Urine Appearance Urine pH Normal (4.5-8.0) Ur Specific [place] (1.000-1.035) Urine Protein (Negative) Urine Glucose (UA) (Negative) g/dL Urine Ketones (NEGATIVE) Urine Occult Blood (Negative) Urine Nitrate (Negative) Urine Bilirubin (NEGATIVE) Urine Urobilinogen (0.2) E.U./dL Ur Leukocyte Esterase (NEGATIVE) Urine RBC (0-5/HPF) Urine WBC (0-5/HPF) Ur Squamous Epith Cells (0-5/HPF) Urine Bacteria (None) Hyaline Casts (None) Granular Casts (None) Urine Mucus (Negative) Ur Culture Indicated? Vol Urine Centrifuged U Opiates 300ng/mL cut (Negative) Ur Oxycodone Screen (Negative) Urine Methadone Screen (Negative) Ur Barbiturates Screen (Negative) U Tricyclic Antidepress (Negative) Ur Phencyclidine Scrn (Negative) Ur Amphetamines Screen (Negative) U Methamphetamines Scrn (Negative) Ur MDMA Scrn (Ecstasy) (Negative) U Benzodiazepines Scrn (Negative) Urine Cocaine Screen (Negative) U Marijuana (THC) Screen (Negative) Urine Specific [place] Normal (Normal) Ur Creatinine Normal (Normal) Chlamy pneumoniae PCR (Not Detect) Adenovirus (PCR) (Not Detect) B.parapertussis DNA PCR (Not Detecte) Coronavirus OC43 (PCR) (Not Detect) Coronavirus HKU1 (PCR) (Not Detect) Coronavirus 229E (PCR) (Not Detect) SARS-CoV-2 (PCR) (Not Detecte) Coronavirus NL63 (PCR) (Not Detect) Human Metapneumovir PCR (Not Detect) Influenza Type A (PCR) (Not Detect) Influenza Type B (PCR) (Not Detect) M. pneumoniae (PCR) (Not Detect) Parainfluenza 1 (PCR) (Not Detect) Parainfluenza 2 (PCR) (Not Detect) Parainfluenza 3 (PCR) (Not Detect) Parainfluenza 4 (PCR) (Not Detect) RSV (PCR) (Not Detect) Entero/Rhino (PCR) (Not Detect) Discharge Plan Departure Prescriptions: No Action No Known Home Medications Referrals: Miscellaneous,Doctor, MD [Primary Care Provider] -
--- NOTE | 2023-12-06 19:10 | ED.SOB ---
HPI - SOB/Dyspnea General Chief Complaint: Shortness of Breath/Dyspnea Stated Complaint: SOB, Heart Failure Time Seen by Provider: 12/06/23 17:01 Source: patient and family Mode of arrival: Wheelchair Limitations: no limitations History of Present Illness HPI Narrative: 68-year-old male with a complex and ill-defined cardiac history presenting with 2-3 days of dyspnea. He also says he has had a productive cough and body aches all over. He also endorsed having some chills but no fevers. He presented to an urgent care was noted to appears cyanotic and dyspneic and was referred to the emergency department. On arrival here is 87% on room air. He has not having chest pain. He has not had nausea vomiting or sweats. He says that he did not take his medications last night or this morning. I was able to review his medications, they include Toprol ER 25 mg b.i.d., Coumadin, Lasix 40 b.i.d., spironolactone 25 daily and amiodarone 400 mg daily. 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 The patient states that he had an intake visit with heart transplant team at some point. He has a implantable defibrillator/pacemaker. Shortly after his arrival, he was started on BiPAP secondary to dyspnea. Reportedly he improved while on BiPAP but then he removed the device and refused to continue. He is now presently tolerating high-flow nasal cannula. Related Data Home Medications Medication Instructions Recorded Confirmed No Known Home Medications 07/13/22 07/13/22 Allergies Allergy/AdvReac Type Severity Reaction Status Date / Time No Known Drug Allergies Allergy Verified 12/06/23 18:00 Patient History Social History Smoking Status: Never smoker Smoking Status: Never smoker alcohol intake frequency: 0-2 drinks per day Alcohol type: beer Substance Use Type: marijuana Exam Initial Vital Signs Initial Vital Signs: Vital Signs Temperature 98.8 F 12/06/23 16:52 Pulse Rate 72 12/06/23 16:52 Respiratory Rate 26 H 12/06/23 16:52 Blood Pressure 114/70 12/06/23 16:52 Pulse Oximetry 87 L 12/06/23 16:52 Oxygen Delivery Method Room Air 12/06/23 16:52 Const Other: Appears his stated age, in no distress, [facility] Head: normocephalic and atraumatic Neck Other: Supple, jugular venous distention, presently supine Chest Other: Palpable defibrillator implant left anterior chest wall Resp Other: He is on high-flow nasal cannula. He is speaking in full sentences. Decreased air movement scattered rhonchi anteriorly Cardio Other: Regular rhythm and rate with a systolic murmur, PMI is displaced laterally GI Other: Soft and nontender Skin Other: Warm and dry with cyanotic extremity Neuro Other: Alert oriented no focal motor deficits Course Orders Ordered: ED Orders 12/06/23 17:01 XR chest 1V Stat EKG-12 Lead Stat 12/06/23 17:06 Blood Culture Stat Complete Blood Count AUTO DIFF Stat Comprehensive Metabolic Panel Stat Lactate (Lactic Acid) Stat Lipase Stat NT-proBNP (BNP-Adult 18+) Stat PTT Partial Thromboplastin Lito Stat Procalcitonin Stat Prothrombin Time INR Stat Troponin & CK Cardiac Panel Stat 12/06/23 17:15 Respiratory Panel (Film Array) Stat 12/06/23 17:45 ABG [Arterial Blood Gas] Stat 12/06/23 17:57 Ammonia (NH3) Stat 12/06/23 18:00 BiPAP Ventilatory Support RT PROTOCOL 12/06/23 18:54 High flow/High humidity nasal NOW 12/06/23 20:18 Urinalysis and Microscopic Stat urine tox [Urine Drug Screen, Rapid] Stat 12/06/23 21:11 Venous Blood Gas Stat Discontinued Medications Sodium Chloride (Normal Saline 0.9%) 500 mls @ 1,000 mls/hr IV BOLUS ONE Stop: 12/06/23 17:43 Last Infusion: 12/06/23 18:50 Dose: Infused Documented By: Admin: 12/06/23 17:19 Dose: 1,000 mls/hr Documented By: JOB Furosemide 60 mg/ Sodium (Chloride) 56 mls @ 112 mls/hr IV NOW ONE Stop: 12/06/23 19:08 Last Infusion: 12/06/23 19:32 Dose: Infused Documented By: Admin: 12/06/23 19:15 Dose: 112 mls/hr Documented By: CLARE Reevaluation(s) Reevaluation #1: Vital signs are stable, his oxygen saturations are good he is resting comfortably, arouses easily to voice will repeat blood gas Consultations Consultation #1: At 9:20 p.m., discussed with cardiology at [facility] Dr. Alva, agrees the patient is appropriate for their facility Consultation #2: At 9:30 p.m., discussed with hospitalist Dr. Thomas, accepts transfer to [facility] Vital Signs Vital signs: Vital Signs - 8 hr 12/06/23 16:52 12/06/23 17:22 12/06/23 17:26 Temperature 98.8 F Pulse Rate 72 69 Respiratory Rate 26 H 28 H Blood Pressure 114/70 101/69 Pulse Oximetry 87 L 90 L Oxygen Delivery Method Room Air Nasal Cannula Oxygen Flow Rate 2 Fraction of Inspired Oxygen 12/06/23 17:26 12/06/23 17:30 12/06/23 17:30 Temperature Pulse Rate 69 69 Respiratory Rate 32 H 27 H Blood Pressure 103/72 Pulse Oximetry 93 89 L Oxygen Delivery Method Nasal Cannula Nasal Cannula Oxygen Flow Rate 4 4 Fraction of Inspired Oxygen 12/06/23 17:35 12/06/23 17:35 12/06/23 17:40 Temperature Pulse Rate 69 69 Respiratory Rate 27 H 23 Blood Pressure 104/70 Pulse Oximetry 90 L 87 L Oxygen Delivery Method Nasal Cannula Oxygen Flow Rate 4 Fraction of Inspired Oxygen 12/06/23 17:40 12/06/23 17:45 12/06/23 17:45 Temperature Pulse Rate 69 Respiratory Rate 31 H Blood Pressure 112/72 106/73 Pulse Oximetry 89 L Oxygen Delivery Method Nasal Cannula Oxygen Flow Rate 5 Fraction of Inspired Oxygen 12/06/23 17:50 12/06/23 17:50 12/06/23 17:55 Temperature Pulse Rate 69 Respiratory Rate 25 H Blood Pressure 115/80 115/78 Pulse Oximetry Oxygen Delivery Method Oxygen Flow Rate Fraction of Inspired Oxygen 12/06/23 17:55 12/06/23 18:00 12/06/23 18:00 Temperature Pulse Rate 70 70 Respiratory Rate 26 H 25 H Blood Pressure 115/80 Pulse Oximetry 98 98 Oxygen Delivery Method BiPAP Oxygen Flow Rate Fraction of Inspired Oxygen 35 12/06/23 18:00 12/06/23 18:05 12/06/23 18:05 Temperature Pulse Rate 69 Respiratory Rate 26 H Blood Pressure 117/78 117/78 Pulse Oximetry 98 Oxygen Delivery Method Oxygen Flow Rate Fraction of Inspired Oxygen 12/06/23 18:10 12/06/23 18:10 12/06/23 18:15 Temperature Pulse Rate 69 Respiratory Rate 24 Blood Pressure 115/78 115/79 Pulse Oximetry 94 Oxygen Delivery Method BiPAP Oxygen Flow Rate Fraction of Inspired Oxygen 12/06/23 18:15 12/06/23 18:21 12/06/23 18:21 Temperature Pulse Rate 69 69 Respiratory Rate 25 H 27 H Blood Pressure 118/78 Pulse Oximetry 100 97 Oxygen Delivery Method BiPAP Oxygen Flow Rate Fraction of Inspired Oxygen 12/06/23 18:25 12/06/23 18:25 12/06/23 18:30 Temperature Pulse Rate 69 68 Respiratory Rate 32 H 28 H Blood Pressure 118/78 Pulse Oximetry 96 94 Oxygen Delivery Method BiPAP Nasal Cannula Oxygen Flow Rate Fraction of Inspired Oxygen 12/06/23 18:30 12/06/23 18:31 12/06/23 18:34 Temperature Pulse Rate Respiratory Rate Blood Pressure 112/68 Pulse Oximetry 94 95 Oxygen Delivery Method Nasal Cannula Nasal Cannula Oxygen Flow Rate 4 4 Fraction of Inspired Oxygen 12/06/23 18:35 12/06/23 18:35 12/06/23 18:40 Temperature Pulse Rate 68 Respiratory Rate 30 H Blood Pressure 115/79 116/71 Pulse Oximetry 91 Oxygen Delivery Method Oxygen Flow Rate Fraction of Inspired Oxygen 12/06/23 18:40 12/06/23 18:46 12/06/23 18:46 Temperature Pulse Rate 69 69 Respiratory Rate 17 24 Blood Pressure 116/77 Pulse Oximetry 88 L 91 Oxygen Delivery Method Oxygen Flow Rate Fraction of Inspired Oxygen 12/06/23 18:50 12/06/23 18:50 12/06/23 18:54 Temperature Pulse Rate 71 69 Respiratory Rate 25 H 28 H Blood Pressure 115/79 117/81 Pulse Oximetry 100 95 Oxygen Delivery Method Oxygen Flow Rate Fraction of Inspired Oxygen 12/06/23 18:55 12/06/23 18:55 12/06/23 19:00 Temperature Pulse Rate 69 69 Respiratory Rate 28 H 37 H Blood Pressure 117/81 Pulse Oximetry 97 96 Oxygen Delivery Method High Flow Nasal Cannula High Flow Nasal Cannula Oxygen Flow Rate 45 45 Fraction of Inspired Oxygen 12/06/23 19:00 12/06/23 19:05 12/06/23 19:05 Temperature Pulse Rate 69 Respiratory Rate 35 H Blood Pressure 115/78 112/74 Pulse Oximetry 96 Oxygen Delivery Method Oxygen Flow Rate Fraction of Inspired Oxygen 12/06/23 19:10 12/06/23 19:10 12/06/23 19:15 Temperature Pulse Rate 69 69 Respiratory Rate 22 30 H Blood Pressure 113/77 Pulse Oximetry 94 99 Oxygen Delivery Method High Flow Nasal Cannula Oxygen Flow Rate Fraction of Inspired Oxygen 12/06/23 19:15 12/06/23 19:20 12/06/23 19:20 Temperature Pulse Rate 69 Respiratory Rate 17 Blood Pressure 115/78 112/77 Pulse Oximetry 99 Oxygen Delivery Method Oxygen Flow Rate Fraction of Inspired Oxygen 12/06/23 19:25 12/06/23 19:25 12/06/23 19:30 Temperature Pulse Rate 69 Respiratory Rate 33 H Blood Pressure 111/81 116/76 Pulse Oximetry Oxygen Delivery Method Oxygen Flow Rate Fraction of Inspired Oxygen 12/06/23 19:30 12/06/23 19:35 12/06/23 19:35 Temperature Pulse Rate 69 69 Respiratory Rate 20 31 H Blood Pressure 115/78 Pulse Oximetry Oxygen Delivery Method Oxygen Flow Rate Fraction of Inspired Oxygen 12/06/23 19:40 12/06/23 19:40 12/06/23 19:50 Temperature Pulse Rate 69 69 Respiratory Rate 35 H 18 Blood Pressure 112/68 Pulse Oximetry 100 97 Oxygen Delivery Method High Flow Nasal Cannula Oxygen Flow Rate Fraction of Inspired Oxygen 12/06/23 19:50 12/06/23 19:55 12/06/23 19:55 Temperature Pulse Rate 69 Respiratory Rate 16 Blood Pressure 106/67 107/69 Pulse Oximetry 96 Oxygen Delivery Method Oxygen Flow Rate Fraction of Inspired Oxygen 12/06/23 20:00 12/06/23 20:00 12/06/23 20:05 Temperature Pulse Rate 69 Respiratory Rate 37 H Blood Pressure 112/71 119/77 Pulse Oximetry 94 Oxygen Delivery Method Oxygen Flow Rate Fraction of Inspired Oxygen 12/06/23 20:05 12/06/23 20:10 12/06/23 20:10 Temperature Pulse Rate 68 69 Respiratory Rate 11 L 35 H Blood Pressure 112/76 Pulse Oximetry 97 94 Oxygen Delivery Method Oxygen Flow Rate Fraction of Inspired Oxygen 12/06/23 20:15 12/06/23 20:15 12/06/23 20:21 Temperature Pulse Rate 69 Respiratory Rate 18 Blood Pressure 111/74 115/77 Pulse Oximetry 96 Oxygen Delivery Method Oxygen Flow Rate Fraction of Inspired Oxygen 12/06/23 20:21 12/06/23 20:26 12/06/23 20:26 Temperature Pulse Rate 69 71 Respiratory Rate 20 38 H Blood Pressure 133/76 Pulse Oximetry 96 94 Oxygen Delivery Method Oxygen Flow Rate Fraction of Inspired Oxygen 12/06/23 20:30 12/06/23 20:35 12/06/23 20:35 Temperature Pulse Rate 69 69 Respiratory Rate 38 H 10 L Blood Pressure 112/74 Pulse Oximetry 93 95 Oxygen Delivery Method High Flow Nasal Cannula Oxygen Flow Rate Fraction of Inspired Oxygen 12/06/23 20:40 12/06/23 20:40 12/06/23 20:45 Temperature Pulse Rate 73 69 Respiratory Rate 35 H 27 H Blood Pressure 114/66 Pulse Oximetry 97 94 Oxygen Delivery Method Oxygen Flow Rate Fraction of Inspired Oxygen 12/06/23 20:45 12/06/23 20:50 12/06/23 20:50 Temperature Pulse Rate 70 Respiratory Rate 13 Blood Pressure 114/74 110/78 Pulse Oximetry 93 Oxygen Delivery Method Oxygen Flow Rate Fraction of Inspired Oxygen 12/06/23 20:55 12/06/23 20:55 12/06/23 21:00 Temperature Pulse Rate 69 Respiratory Rate 32 H Blood Pressure 116/81 114/81 Pulse Oximetry 90 L Oxygen Delivery Method Oxygen Flow Rate Fraction of Inspired Oxygen 12/06/23 21:00 12/06/23 21:05 12/06/23 21:05 Temperature Pulse Rate 69 74 Respiratory Rate 30 H 34 H Blood Pressure 120/85 Pulse Oximetry 95 92 Oxygen Delivery Method Oxygen Flow Rate Fraction of Inspired Oxygen 12/06/23 21:11 12/06/23 21:11 12/06/23 21:15 Temperature Pulse Rate 69 69 Respiratory Rate 23 20 Blood Pressure 119/82 Pulse Oximetry 94 92 Oxygen Delivery Method Oxygen Flow Rate Fraction of Inspired Oxygen 12/06/23 21:15 12/06/23 21:20 12/06/23 21:20 Temperature Pulse Rate 69 Respiratory Rate 35 H Blood Pressure 122/82 125/85 Pulse Oximetry 93 Oxygen Delivery Method Oxygen Flow Rate Fraction of Inspired Oxygen MDM - SOB/Dyspnea Lab Data Lab results narrative: Labs remarkable for lactic of 3.2, total bilirubin is 3.7 which is up from 2.2 in September of last year, INRs overshot at 4. Creatinine remarkable for elevation to 2.0 weight in September it was 1.68. BUN is 34. CBC is unremarkable, procalcitonin is 1.88, [place] [address] with no baseline. Troponin is elevated at 0.67 12/06/23 17:06 12/06/23 17:06 Labs: Lab Results 12/06/23 12/06/23 12/06/23 Range/Units 17:06 17:15 17:45 WBC 14.2 H (4.5-11.0) X10^3/uL RBC 4.99 (4.5-5.9) X10^6/uL Hgb 14.2 (13.5-17.5) g/dL Hct 43.9 (41-53) % MCV 88.0 (80-100) fL MCH 28.5 (26-34) PG MCHC 32.4 (30-36) % RDW 15.7 H (11.6-14.8) % Plt Count 262 (150-400) X10^3/uL Neut % (Auto) 87.3 H (50-75) % Lymph % (Auto) 4.6 L (25-40) % Divide % (Auto) 7.8 (3-14) % Eos % (Auto) 0.1 L (2-4) % Baso % (Auto) 0.2 (0-2) % Neut # (Auto) 14513 H (5405-1601) /uL Lymph # (Auto) 700 L (1146-7793) /uL Divide # (Auto) 1100 H (0-900) /uL Eos # (Auto) 0 (0-450) /uL Baso # (Auto) 0 (0-100) /uL PT 46.2 H (9.4-12.5) SECONDS INR 4.0 H (0.9-1.3) APTT 51 H (25.1-36.5) SECONDS ABG Sample Site Right brachial ABG pH 7.35 (7.35-7.45) ABG pCO2 50.5 H (35-45) mmHg ABG pO2 13 L* (80-100) mmHg ABG HCO3 28 H (23-27) mmol/L ABG Total CO2 29 H (23-27) mmol/L ABG O2 Saturation 13 L* (95-100) % ABG Base Excess 2.0 (-2-3) mmol/L FiO2 36 Sodium 136 L (137-145) mmol/L Potassium 4.8 (3.4-5.1) mmol/L Chloride 99 (98-107) mmol/L Carbon Dioxide 22 (22-32) mmol/L BUN 48 H (9-20) mg/dL Creatinine 2.08 H (0.66-1.25) mg/dL Estimated GFR 34 L (>60) mL/min BUN/Creatinine Ratio 23.1 H (6-22) Glucose 148 H (80-110) mg/dL Lactate 3.2 H (0.7-2.1) mmol/L Calcium 9.6 (8.4-10.2) mg/dL Total Bilirubin 3.7 H (0.2-1.3) mg/dL AST 35 (17-59) IU/L ALT 35 (<50) IU/L Alkaline Phosphatase 134 H (38-126) U/L Ammonia (9-30) umol/L Total Creatine Kinase 46 L (55-170) U/L Troponin I 0.067 H (0.01-0.034) ng/mL NT-Pro-B Natriuret Pep 85923 H (<125) pg/mL Total Protein 8.8 H (6.3-8.2) g/dL Albumin 4.0 (3.5-5.0) g/dL Globulin 4.8 H (1.7-4.1) g/dL Albumin/Globulin Ratio 0.8 L (1.0-2.8) Lipase 122 (23-300) U/L Procalcitonin 1.88 H (<0.5) ng/mL Urine Color Urine Appearance Urine pH (4.5-8.0) Ur Specific [place] (1.000-1.035) Urine Protein (Negative) Urine Glucose (UA) (Negative) g/dL Urine Ketones (NEGATIVE) Urine Occult Blood (Negative) Urine Nitrate (Negative) Urine Bilirubin (NEGATIVE) Urine Urobilinogen (0.2) E.U./dL Ur Leukocyte Esterase (NEGATIVE) Urine RBC (0-5/HPF) Urine WBC (0-5/HPF) Ur Squamous Epith Cells (0-5/HPF) Urine Bacteria (None) Hyaline Casts (None) Granular Casts (None) Urine Mucus (Negative) Ur Culture Indicated? Vol Urine Centrifuged U Opiates 300ng/mL cut (Negative) Ur Oxycodone Screen (Negative) Urine Methadone Screen (Negative) Ur Barbiturates Screen (Negative) U Tricyclic Antidepress (Negative) Ur Phencyclidine Scrn (Negative) Ur Amphetamines Screen (Negative) U Methamphetamines Scrn (Negative) Ur MDMA Scrn (Ecstasy) (Negative) U Benzodiazepines Scrn (Negative) Urine Cocaine Screen (Negative) U Marijuana (THC) Screen (Negative) Urine Specific [place] (Normal) Ur Creatinine (Normal) Chlamy pneumoniae PCR Not detected (Not Detect) Adenovirus (PCR) Not detected (Not Detect) B.parapertussis DNA PCR Not detected (Not Detecte) Coronavirus OC43 (PCR) Not detected (Not Detect) Coronavirus HKU1 (PCR) Not detected (Not Detect) Coronavirus 229E (PCR) Not detected (Not Detect) SARS-CoV-2 (PCR) Not detected (Not Detecte) Coronavirus NL63 (PCR) Not detected (Not Detect) Human Metapneumovir PCR Not detected (Not Detect) Influenza Type A (PCR) Not detected (Not Detect) Influenza Type B (PCR) Not detected (Not Detect) M. pneumoniae (PCR) Not detected (Not Detect) Parainfluenza 1 (PCR) Not detected (Not Detect) Parainfluenza 2 (PCR) Not detected (Not Detect) Parainfluenza 3 (PCR) Not detected (Not Detect) Parainfluenza 4 (PCR) Not detected (Not Detect) RSV (PCR) Not detected (Not Detect) Entero/Rhino (PCR) Not detected (Not Detect) 12/06/23 12/06/23 12/06/23 Range/Units 17:57 19:35 20:18 WBC (4.5-11.0) X10^3/uL RBC (4.5-5.9) X10^6/uL Hgb (13.5-17.5) g/dL Hct (41-53) % MCV (80-100) fL MCH (26-34) PG MCHC (30-36) % RDW (11.6-14.8) % Plt Count (150-400) X10^3/uL Neut % (Auto) (50-75) % Lymph % (Auto) (25-40) % Divide % (Auto) (3-14) % Eos % (Auto) (2-4) % Baso % (Auto) (0-2) % Neut # (Auto) (6438-1662) /uL Lymph # (Auto) (1405-8328) /uL Divide # (Auto) (0-900) /uL Eos # (Auto) (0-450) /uL Baso # (Auto) (0-100) /uL PT (9.4-12.5) SECONDS INR (0.9-1.3) APTT (25.1-36.5) SECONDS ABG Sample Site ABG pH (7.35-7.45) ABG pCO2 (35-45) mmHg ABG pO2 (80-100) mmHg ABG HCO3 (23-27) mmol/L ABG Total CO2 (23-27) mmol/L ABG O2 Saturation (95-100) % ABG Base Excess (-2-3) mmol/L FiO2 Sodium (137-145) mmol/L Potassium (3.4-5.1) mmol/L Chloride (98-107) mmol/L Carbon Dioxide (22-32) mmol/L BUN (9-20) mg/dL Creatinine (0.66-1.25) mg/dL Estimated GFR (>60) mL/min BUN/Creatinine Ratio (6-22) Glucose (80-110) mg/dL Lactate 2.5 H (0.7-2.1) mmol/L Calcium (8.4-10.2) mg/dL Total Bilirubin (0.2-1.3) mg/dL AST (17-59) IU/L ALT (<50) IU/L Alkaline Phosphatase (38-126) U/L Ammonia < 9 L (9-30) umol/L Total Creatine Kinase (55-170) U/L Troponin I (0.01-0.034) ng/mL NT-Pro-B Natriuret Pep (<125) pg/mL Total Protein (6.3-8.2) g/dL Albumin (3.5-5.0) g/dL Globulin (1.7-4.1) g/dL Albumin/Globulin Ratio (1.0-2.8) Lipase (23-300) U/L Procalcitonin (<0.5) ng/mL Urine Color [place] Urine Appearance Clear Urine pH 5.0 (4.5-8.0) Ur Specific [place] >=1.030 H (1.000-1.035) Urine Protein 1+ H (Negative) Urine Glucose (UA) Negative (Negative) g/dL Urine Ketones Negative (NEGATIVE) Urine Occult Blood Trace-intact (Negative) Urine Nitrate Negative (Negative) Urine Bilirubin Negative (NEGATIVE) Urine Urobilinogen 1.0 (0.2) E.U./dL Ur Leukocyte Esterase Negative (NEGATIVE) Urine RBC 0-1/hpf (0-5/HPF) Urine WBC 0-1/hpf (0-5/HPF) Ur Squamous Epith Cells 0-1 /hpf (0-5/HPF) Urine Bacteria Moderate (10-30) H (None) Hyaline Casts 5-10/lpf (None) Granular Casts 0-1/lpf (None) Urine Mucus 2+ H (Negative) Ur Culture Indicated? Cult not indicated Vol Urine Centrifuged 10ml (spun) U Opiates 300ng/mL cut Negative (Negative) Ur Oxycodone Screen Negative (Negative) Urine Methadone Screen Negative (Negative) Ur Barbiturates Screen Negative (Negative) U Tricyclic Antidepress Negative (Negative) Ur Phencyclidine Scrn Negative (Negative) Ur Amphetamines Screen Negative (Negative) U Methamphetamines Scrn Negative (Negative) Ur MDMA Scrn (Ecstasy) Negative (Negative) U Benzodiazepines Scrn Negative (Negative) Urine Cocaine Screen Negative (Negative) U Marijuana (THC) Screen Negative (Negative) Urine Specific [place] (Normal) Ur Creatinine (Normal) Chlamy pneumoniae PCR (Not Detect) Adenovirus (PCR) (Not Detect) B.parapertussis DNA PCR (Not Detecte) Coronavirus OC43 (PCR) (Not Detect) Coronavirus HKU1 (PCR) (Not Detect) Coronavirus 229E (PCR) (Not Detect) SARS-CoV-2 (PCR) (Not Detecte) Coronavirus NL63 (PCR) (Not Detect) Human Metapneumovir PCR (Not Detect) Influenza Type A (PCR) (Not Detect) Influenza Type B (PCR) (Not Detect) M. pneumoniae (PCR) (Not Detect) Parainfluenza 1 (PCR) (Not Detect) Parainfluenza 2 (PCR) (Not Detect) Parainfluenza 3 (PCR) (Not Detect) Parainfluenza 4 (PCR) (Not Detect) RSV (PCR) (Not Detect) Entero/Rhino (PCR) (Not Detect) 12/06/23 Range/Units 20:18 WBC (4.5-11.0) X10^3/uL RBC (4.5-5.9) X10^6/uL Hgb (13.5-17.5) g/dL Hct (41-53) % MCV (80-100) fL MCH (26-34) PG MCHC (30-36) % RDW (11.6-14.8) % Plt Count (150-400) X10^3/uL Neut % (Auto) (50-75) % Lymph % (Auto) (25-40) % Divide % (Auto) (3-14) % Eos % (Auto) (2-4) % Baso % (Auto) (0-2) % Neut # (Auto) (4136-6905) /uL Lymph # (Auto) (7921-1676) /uL Divide # (Auto) (0-900) /uL Eos # (Auto) (0-450) /uL Baso # (Auto) (0-100) /uL PT (9.4-12.5) SECONDS INR (0.9-1.3) APTT (25.1-36.5) SECONDS ABG Sample Site ABG pH (7.35-7.45) ABG pCO2 (35-45) mmHg ABG pO2 (80-100) mmHg ABG HCO3 (23-27) mmol/L ABG Total CO2 (23-27) mmol/L ABG O2 Saturation (95-100) % ABG Base Excess (-2-3) mmol/L FiO2 Sodium (137-145) mmol/L Potassium (3.4-5.1) mmol/L Chloride (98-107) mmol/L Carbon Dioxide (22-32) mmol/L BUN (9-20) mg/dL Creatinine (0.66-1.25) mg/dL Estimated GFR (>60) mL/min BUN/Creatinine Ratio (6-22) Glucose (80-110) mg/dL Lactate (0.7-2.1) mmol/L Calcium (8.4-10.2) mg/dL Total Bilirubin (0.2-1.3) mg/dL AST (17-59) IU/L ALT (<50) IU/L Alkaline Phosphatase (38-126) U/L Ammonia (9-30) umol/L Total Creatine Kinase (55-170) U/L Troponin I (0.01-0.034) ng/mL NT-Pro-B Natriuret Pep (<125) pg/mL Total Protein (6.3-8.2) g/dL Albumin (3.5-5.0) g/dL Globulin (1.7-4.1) g/dL Albumin/Globulin Ratio (1.0-2.8) Lipase (23-300) U/L Procalcitonin (<0.5) ng/mL Urine Color Urine Appearance Urine pH Normal (4.5-8.0) Ur Specific [place] (1.000-1.035) Urine Protein (Negative) Urine Glucose (UA) (Negative) g/dL Urine Ketones (NEGATIVE) Urine Occult Blood (Negative) Urine Nitrate (Negative) Urine Bilirubin (NEGATIVE) Urine Urobilinogen (0.2) E.U./dL Ur Leukocyte Esterase (NEGATIVE) Urine RBC (0-5/HPF) Urine WBC (0-5/HPF) Ur Squamous Epith Cells (0-5/HPF) Urine Bacteria (None) Hyaline Casts (None) Granular Casts (None) Urine Mucus (Negative) Ur Culture Indicated? Vol Urine Centrifuged U Opiates 300ng/mL cut (Negative) Ur Oxycodone Screen (Negative) Urine Methadone Screen (Negative) Ur Barbiturates Screen (Negative) U Tricyclic Antidepress (Negative) Ur Phencyclidine Scrn (Negative) Ur Amphetamines Screen (Negative) U Methamphetamines Scrn (Negative) Ur MDMA Scrn (Ecstasy) (Negative) U Benzodiazepines Scrn (Negative) Urine Cocaine Screen (Negative) U Marijuana (THC) Screen (Negative) Urine Specific [place] Normal (Normal) Ur Creatinine Normal (Normal) Chlamy pneumoniae PCR (Not Detect) Adenovirus (PCR) (Not Detect) B.parapertussis DNA PCR (Not Detecte) Coronavirus OC43 (PCR) (Not Detect) Coronavirus HKU1 (PCR) (Not Detect) Coronavirus 229E (PCR) (Not Detect) SARS-CoV-2 (PCR) (Not Detecte) Coronavirus NL63 (PCR) (Not Detect) Human Metapneumovir PCR (Not Detect) Influenza Type A (PCR) (Not Detect) Influenza Type B (PCR) (Not Detect) M. pneumoniae (PCR) (Not Detect) Parainfluenza 1 (PCR) (Not Detect) Parainfluenza 2 (PCR) (Not Detect) Parainfluenza 3 (PCR) (Not Detect) Parainfluenza 4 (PCR) (Not Detect) RSV (PCR) (Not Detect) Entero/Rhino (PCR) (Not Detect) Imaging Data Chest x-ray: My Impression: Portable chest x-ray shows massive cardiomegaly, appears to have bilateral effusions and questionable infiltrate in the right base. ECG Data Interpretation: ECG shows paced rhythm MDM Narrative Medical decision making narrative: 68-year-old male with the advanced heart failure presenting with dyspnea. He has not having chest pain but does have an elevated troponin. Also noted to have increase in creatinine. No infectious etiology was identified, he has not having chest pain and EKG is paced therefore I can not fully assess the possibility of ischemia. It seems likely that he has been noncompliant with his medications he admitted to not taking his medications last night and today. Treated with noninvasive positive pressure ventilation and gentle diuresis with good results. Still to complex the patient for this facility, he is transferred to [facility] and [place]. Patient is stable for transfer Critical Care Time Critical Care Time Critical Care Time: Yes Total Critical Care Time: 50 Attestation: Patient required noninvasive ventilatory support, frequent re-evaluations for respiratory failure Discharge Plan Departure Patient Disposition: [facility] Clinical Impression: Acute kidney injury Respiratory failure Qualifiers: Chronicity: acute Respiratory failure complication: hypoxia and hypercapnia Qualified Code(s): J96.01 - Acute respiratory failure with hypoxia Acute exacerbation of CHF (congestive heart failure) Qualifiers: Heart failure type: unspecified Qualified Code(s): I50.9 - Heart failure, unspecified Prescriptions: No Action No Known Home Medications Referrals: Miscellaneous,DoctorMD [Primary Care Provider] -
[2023-12-06] MEDS: FUROSEMIDE 60 MG in SODIUM CHLORIDE 0.9% 50 ML 112 MG IV (19:15)
[2023-12-06 19:52] LABS: Lactate 2HR (Lactic Acid Rflx) 2.5 mmol/L (0.7-2.1)
[2023-12-06 20:29] LABS: Appearance Urine UA CLEAR; Bilirubin Urine UA NEGATIVE (NEGATIVE); Glucose Urine UA NEGATIVE (Negative); Ketones Urine UA NEGATIVE (NEGATIVE); Leukocyte Esterase Urine UA NEGATIVE (NEGATIVE); Nitrite Urine UA NEGATIVE (Negative); Occult Blood Urine UA TRACE-INTACT (Negative); Protein Urine UA 1+ (Negative); Specific Gravity Urine UA >=1.030 (1.000-1.035)
[2023-12-06 20:30] LABS: Color Urine UA ORANGE
[2023-12-06 20:31] LABS: Ur Creatinine Normal (Normal); Ur Specific Gravity Normal (Normal)
[2023-12-06 20:32] LABS: Urine Amphetamines Negative (Negative); Urine Barbiturates Negative (Negative); Urine Benzodiazepines Negative (Negative); Urine Cocaine Negative (Negative); Urine MDMA Negative (Negative); Urine Methadone Negative (Negative); Urine Methamphetamines Negative (Negative); Urine Opiates Negative (Negative); Urine Oxycodone Negative (Negative); Urine Phencyclidine Negative (Negative); Urine THC Negative (Negative); Urine Tricyclic Antidepressant Negative (Negative); Urine pH Normal (Normal)
[2023-12-06 20:44] LABS: Bacteria Urine Moderate (10-30); Granular Casts Urine 0-1/LPF; Hyaline Casts Urine 5-10/LPF; Mucus Urine 2+ (Negative); RBC Urine 0-1/HPF (0-5/HPF); Squamous Epithelial Cell Urine 0-1 /HPF (0-5/HPF); Urine Volume 10mL (spun); WBC Urine 0-1/HPF (0-5/HPF)
[2023-12-06 20:45] LABS: Culture Indicated Urine Cult Not Indicated
[2023-12-06 22:08] LABS: Fractionated Inspired Oxygen 35; HCO3 VBG 24 mmol/L (24-28); Oxygen Saturation VBG 26 % (70-75); PCO2 VBG 38.6 mmHg (45-50); PO2 VBG 17 mmHg (35-45); Total CO2 VBG 26 mmol/L (24-29); pH VBG 7.41 (7.33-7.43)
== END 2023-12-07 00:01 | disposition short-term general hospital (02) ==
PROVIDERS: Emergency Medicine; Emergency Provider Emergency Medicine
DX: N17.9 Acute kidney failure, unspecified (principal); J96.01 Acute respiratory failure with hypoxia; I50.9 Heart failure, unspecified; Z20.822 Contact with and (suspected) exposure to COVID-19
CPT/HCPCS: 36415; 36600; 71045; 80053; 80305; 81001; 82140; 82550; 82805; 83605; 83690; 83880; 84145; 84484; 85025; 85610; 85730; 87040; 87633; 93005; 94660; 96361; 96365; 99285; 99291; 99292; J1940

== ENCOUNTER 2023-12-11 11:07 | Emergency (ER) | payer OTHER, SELFPAY ==
[2023-12-06 18:00] VITALS: PULSE 69; RESP 25; O2SAT 99
[2023-12-11] VITALS (310 sets, daily range): BP systolic 65–111; BP diastolic 44–69; PULSE 68–76; RESP 29–59; TEMP 36.2; O2SAT 86–100; BMI 21.7
--- NOTE | 2023-12-11 11:17 | ED_ITS ---
HPI - Chest Pain <Marjan Ramos MD - Last Filed: 12/12/23 07:06> General Chief Complaint: Chest Pain Stated Complaint: low bp/heart failure Time Seen by Provider: 12/11/23 11:10 Source: patient and EMS Mode of arrival: EMS Limitations: no limitations History of Present Illness HPI narrative: 68-year-old gentleman with end-stage cardiomyopathy and severe heart failure, he has an AICD in place and was seen here on December 06 with dyspnea, found to be in severe heart failure ended up failing BiPAP but doing well with high-flow oxygen and was transferred to [facility]. Additional history is that he was apparently evaluated at the heart transplant clinic and found to not be a transplant candidate. Verbal report of plans to fly to [place] tomorrow to be further evaluated at [facility] for transplant in [place]. In the meantime, patient has become significantly dyspneic and weak and returns to the emergency department for further evaluation. On arrival he is in critical condition, poorly perfused, pressures with systolics in the 60s and maps in the 50s. He is tachypneic to a rate of 40 and states that he is weak and does not feel well. It started last night shortly after hospital discharge. Attempting to contact [facility] for consultation and obtain records from his week on stay with discharge yesterday afternoon. Related Data Home Medications Medication Instructions Recorded Confirmed amiodarone 200 mg tablet 400 mg PO DAILY 12/11/23 12/11/23 furosemide 40 mg tablet 40 mg PO BID 12/11/23 12/11/23 hydroxyzine HCl 25 mg tablet 25 mg PO QID PRN Anxiety 12/11/23 12/11/23 metoprolol succinate 25 mg 25 mg PO BID 12/11/23 12/11/23 tablet,extended release 24 hr spironolactone 25 mg tablet 25 mg PO DAILY 12/11/23 12/11/23 warfarin 2.5 mg tablet 2.5 - 5 mg PO DAILY 12/11/23 12/11/23 Allergies Allergy/AdvReac Type Severity Reaction Status Date / Time No Known Drug Allergies Allergy Verified 12/11/23 11:58 Review of Systems <Marjan Ramos MD - Last Filed: 12/12/23 07:06> Review of Systems Narrative: Weak, short of breath, no appetite, weight loss, significant orthopnea, no chest pain, no fevers, no headache, no lower extremity edema Patient History <Marjan Ramos MD - Last Filed: 12/12/23 07:06> Medical History (Updated 12/11/23 @ 18:47 by Marjan Ramos MD) Congestive heart failure Surgical History (Updated 12/11/23 @ 11:26 by Marjan Ramos MD) AICD (automatic cardioverter/defibrillator) present Social History Smoking Status: Never smoker Smoking Status: Never smoker alcohol intake frequency: 0-2 drinks per day Alcohol type: beer Substance Use Type: marijuana Exam <Marjan Ramos MD - Last Filed: 12/12/23 07:06> Initial Vital Signs Initial Vital Signs: Vital Signs Temperature 97.1 F L 12/11/23 11:09 Pulse Rate 70 12/11/23 11:09 Respiratory Rate 40 H 12/11/23 11:09 Blood Pressure 65/45 L 12/11/23 11:09 Pulse Oximetry 90 L 12/11/23 11:09 Oxygen Delivery Method Nasal Cannula 12/11/23 11:09 Oxygen Flow Rate 4 12/11/23 11:09 General: Critically ill-appearing cachectic gentleman, able to speak in 2-3 word sentences HEENT: Dry mucous membranes, normal sclera with reactive pupils, Neck: + JVD, Respiratory: Lungs with poor air movement overall, no obvious rhonchi or wheeze appreciated Cardiac: Regular rate and rhythm no murmurs no bruits Abdomen: Soft, nontender, Skin: Dry, thin Neurologic: Grossly neurologically intact with no obvious asymmetries or abnormalities Extremities: Hands and feet are cold to the touch with little to no perfusion Psych: Cooperative, appropriate insight and affect <Aleida Quick DO - Last Filed: 12/12/23 03:34> Initial Vital Signs Initial Vital Signs: Vital Signs Temperature 97.1 F L 12/11/23 11:09 Pulse Rate 70 12/11/23 11:09 Respiratory Rate 40 H 12/11/23 11:09 Blood Pressure 65/45 L 12/11/23 11:09 Pulse Oximetry 90 L 12/11/23 11:09 Oxygen Delivery Method Nasal Cannula 12/11/23 11:09 Oxygen Flow Rate 4 12/11/23 11:09 Course <Marjan Ramos MD - Last Filed: 12/12/23 07:06> Orders Ordered: Discontinued Medications NOREPINEPHRINE BITARTRATE/D5W (Levophed) 4 mg in 250 mls @ 28.8 mls/hr IV TITRATE NEISHA; Protocol Last Admin: 12/11/23 19:49 Dose: 0.2 mcg/kg/min, 57.6 mls/hr Documented By: Titration: 12/11/23 19:46 Dose: Infused Documented By: Admin: 12/11/23 15:25 Dose: 0.2 mcg/kg/min, 57.6 mls/hr Documented By: Titration: 12/11/23 15:25 Dose: Infused Documented By: Titration: 12/11/23 11:21 Dose: 0.2 mcg/kg/min, 57.6 mls/hr Documented By: Admin: 12/11/23 11:19 Dose: 0.1 mcg/kg/min, 28.8 mls/hr Documented By: CONNIE Sodium Chloride (Normal Saline 0.9%) 1,000 mls @ 50 mls/hr IV BOLUS ONE Stop: 12/12/23 07:59 Last Admin: 12/11/23 11:45 Dose: 50 mls/hr Documented By: TATIANA Furosemide 80 mg/ Sodium (Chloride) 58 mls @ 116 mls/hr IV NOW ONE Stop: 12/11/23 14:50 Last Infusion: 12/11/23 15:44 Dose: Infused Documented By: Admin: 12/11/23 15:14 Dose: 116 mls/hr Documented By: CONNIE Ceftriaxone Sodium 2,000 mg/ (Sodium Chloride) 100 mls @ 200 mls/hr IV NOW ONE Stop: 12/11/23 16:00 Last Infusion: 12/11/23 17:04 Dose: Infused Documented By: Admin: 12/11/23 16:32 Dose: 200 mls/hr Documented By: TATIANA Lidocaine HCl (Lidocaine 2% (Glydo) 6 Ml Gel) 6 ml TOP NOW ONE Stop: 12/11/23 15:01 Last Admin: 12/11/23 15:05 Dose: 6 ml Documented By: CONNIE Morphine Sulfate (Morphine 2 Mg/Ml Inj) 2 mg IV Q5MIN PRN PRN Reason: Chest Pain Last Admin: 12/11/23 19:51 Dose: 2 mg Documented By: Admin: 12/11/23 18:52 Dose: 2 mg Documented By: Admin: 12/11/23 17:00 Dose: 2 mg Documented By: CONNIE Vital Signs Vital signs: Vital Signs - 8 hr 12/11/23 19:35 12/11/23 19:35 12/11/23 19:36 Pulse Rate 70 69 Respiratory Rate 52 H 49 H Blood Pressure 89/58 L Pulse Oximetry 94 93 Oxygen Delivery Method Oxygen Flow Rate 12/11/23 19:38 12/11/23 19:40 12/11/23 19:40 Pulse Rate 70 69 Respiratory Rate 42 H 41 H Blood Pressure 94/55 L Pulse Oximetry 94 92 Oxygen Delivery Method Oxygen Flow Rate 12/11/23 19:42 12/11/23 19:44 12/11/23 19:45 Pulse Rate 69 69 Respiratory Rate 41 H 45 H Blood Pressure 97/59 L Pulse Oximetry 93 93 Oxygen Delivery Method Oxygen Flow Rate 12/11/23 19:45 12/11/23 19:46 12/11/23 19:48 Pulse Rate 69 69 69 Respiratory Rate 46 H 46 H 41 H Blood Pressure Pulse Oximetry 94 93 93 Oxygen Delivery Method Oxygen Flow Rate 12/11/23 19:50 12/11/23 19:50 12/11/23 19:52 Pulse Rate 69 69 Respiratory Rate 42 H 44 H Blood Pressure 91/55 L Pulse Oximetry 93 93 Oxygen Delivery Method Oxygen Flow Rate 12/11/23 19:54 12/11/23 19:55 12/11/23 19:55 Pulse Rate 69 69 Respiratory Rate 45 H 35 H Blood Pressure 95/58 L Pulse Oximetry 93 94 Oxygen Delivery Method Oxygen Flow Rate 12/11/23 19:56 12/11/23 19:58 12/11/23 20:00 Pulse Rate 69 69 69 Respiratory Rate 37 H 38 H 38 H Blood Pressure Pulse Oximetry 93 92 92 Oxygen Delivery Method Oxygen Flow Rate 12/11/23 20:00 12/11/23 20:02 12/11/23 20:04 Pulse Rate 69 69 Respiratory Rate 38 H 39 H Blood Pressure 97/60 Pulse Oximetry 94 94 Oxygen Delivery Method Oxygen Flow Rate 12/11/23 20:05 12/11/23 20:05 12/11/23 20:06 Pulse Rate 69 69 Respiratory Rate 37 H 38 H Blood Pressure 101/59 L Pulse Oximetry 94 95 Oxygen Delivery Method Oxygen Flow Rate 12/11/23 20:08 12/11/23 20:10 12/11/23 20:10 Pulse Rate 69 69 Respiratory Rate 37 H 36 H Blood Pressure 99/59 L Pulse Oximetry 95 94 Oxygen Delivery Method Oxygen Flow Rate 12/11/23 20:12 12/11/23 20:14 12/11/23 20:15 Pulse Rate 69 69 69 Respiratory Rate 41 H 37 H 35 H Blood Pressure Pulse Oximetry 94 94 94 Oxygen Delivery Method Oxygen Flow Rate 12/11/23 20:15 12/11/23 20:16 12/11/23 20:18 Pulse Rate 69 69 Respiratory Rate 37 H 39 H Blood Pressure 99/58 L Pulse Oximetry 94 93 Oxygen Delivery Method Oxygen Flow Rate 12/11/23 20:20 12/11/23 20:20 12/11/23 20:22 Pulse Rate 69 69 Respiratory Rate 42 H 37 H Blood Pressure 100/58 L Pulse Oximetry 94 95 Oxygen Delivery Method Oxygen Flow Rate 12/11/23 20:24 12/11/23 20:25 12/11/23 20:25 Pulse Rate 69 69 Respiratory Rate 34 H 35 H Blood Pressure 97/57 L Pulse Oximetry 94 94 Oxygen Delivery Method Heated High Flow Oxygen Flow Rate 40 12/11/23 21:00 Pulse Rate 68 Respiratory Rate 33 H Blood Pressure 100/55 L Pulse Oximetry 95 Oxygen Delivery Method High Flow Nasal Cannula Oxygen Flow Rate <Aleida Quick DO - Last Filed: 12/12/23 03:34> Orders Ordered: Discontinued Medications NOREPINEPHRINE BITARTRATE/D5W (Levophed) 4 mg in 250 mls @ 28.8 mls/hr IV TITRATE NEISHA; Protocol Last Admin: 12/11/23 19:49 Dose: 0.2 mcg/kg/min, 57.6 mls/hr Documented By: Titration: 12/11/23 19:46 Dose: Infused Documented By: Admin: 12/11/23 15:25 Dose: 0.2 mcg/kg/min, 57.6 mls/hr Documented By: Titration: 12/11/23 15:25 Dose: Infused Documented By: Titration: 12/11/23 11:21 Dose: 0.2 mcg/kg/min, 57.6 mls/hr Documented By: Admin: 12/11/23 11:19 Dose: 0.1 mcg/kg/min, 28.8 mls/hr Documented By: CONNIE Sodium Chloride (Normal Saline 0.9%) 1,000 mls @ 50 mls/hr IV BOLUS ONE Stop: 12/12/23 07:59 Last Admin: 12/11/23 11:45 Dose: 50 mls/hr Documented By: TATIANA Furosemide 80 mg/ Sodium (Chloride) 58 mls @ 116 mls/hr IV NOW ONE Stop: 12/11/23 14:50 Last Infusion: 12/11/23 15:44 Dose: Infused Documented By: Admin: 12/11/23 15:14 Dose: 116 mls/hr Documented By: CONNIE Ceftriaxone Sodium 2,000 mg/ (Sodium Chloride) 100 mls @ 200 mls/hr IV NOW ONE Stop: 12/11/23 16:00 Last Infusion: 12/11/23 17:04 Dose: Infused Documented By: Admin: 12/11/23 16:32 Dose: 200 mls/hr Documented By: TATIANA Lidocaine HCl (Lidocaine 2% (Glydo) 6 Ml Gel) 6 ml TOP NOW ONE Stop: 12/11/23 15:01 Last Admin: 12/11/23 15:05 Dose: 6 ml Documented By: CONNIE Morphine Sulfate (Morphine 2 Mg/Ml Inj) 2 mg IV Q5MIN PRN PRN Reason: Chest Pain Last Admin: 12/11/23 19:51 Dose: 2 mg Documented By: Admin: 12/11/23 18:52 Dose: 2 mg Documented By: Admin: 12/11/23 17:00 Dose: 2 mg Documented By: CONNIE Vital Signs Vital signs: Vital Signs - 8 hr 12/11/23 19:35 12/11/23 19:35 12/11/23 19:36 Pulse Rate 70 69 Respiratory Rate 52 H 49 H Blood Pressure 89/58 L Pulse Oximetry 94 93 Oxygen Delivery Method Oxygen Flow Rate 12/11/23 19:38 12/11/23 19:40 12/11/23 19:40 Pulse Rate 70 69 Respiratory Rate 42 H 41 H Blood Pressure 94/55 L Pulse Oximetry 94 92 Oxygen Delivery Method Oxygen Flow Rate 12/11/23 19:42 12/11/23 19:44 12/11/23 19:45 Pulse Rate 69 69 Respiratory Rate 41 H 45 H Blood Pressure 97/59 L Pulse Oximetry 93 93 Oxygen Delivery Method Oxygen Flow Rate 12/11/23 19:45 12/11/23 19:46 12/11/23 19:48 Pulse Rate 69 69 69 Respiratory Rate 46 H 46 H 41 H Blood Pressure Pulse Oximetry 94 93 93 Oxygen Delivery Method Oxygen Flow Rate 12/11/23 19:50 12/11/23 19:50 12/11/23 19:52 Pulse Rate 69 69 Respiratory Rate 42 H 44 H Blood Pressure 91/55 L Pulse Oximetry 93 93 Oxygen Delivery Method Oxygen Flow Rate 12/11/23 19:54 12/11/23 19:55 12/11/23 19:55 Pulse Rate 69 69 Respiratory Rate 45 H 35 H Blood Pressure 95/58 L Pulse Oximetry 93 94 Oxygen Delivery Method Oxygen Flow Rate 12/11/23 19:56 12/11/23 19:58 12/11/23 20:00 Pulse Rate 69 69 69 Respiratory Rate 37 H 38 H 38 H Blood Pressure Pulse Oximetry 93 92 92 Oxygen Delivery Method Oxygen Flow Rate 12/11/23 20:00 12/11/23 20:02 12/11/23 20:04 Pulse Rate 69 69 Respiratory Rate 38 H 39 H Blood Pressure 97/60 Pulse Oximetry 94 94 Oxygen Delivery Method Oxygen Flow Rate 12/11/23 20:05 12/11/23 20:05 12/11/23 20:06 Pulse Rate 69 69 Respiratory Rate 37 H 38 H Blood Pressure 101/59 L Pulse Oximetry 94 95 Oxygen Delivery Method Oxygen Flow Rate 12/11/23 20:08 12/11/23 20:10 12/11/23 20:10 Pulse Rate 69 69 Respiratory Rate 37 H 36 H Blood Pressure 99/59 L Pulse Oximetry 95 94 Oxygen Delivery Method Oxygen Flow Rate 12/11/23 20:12 12/11/23 20:14 12/11/23 20:15 Pulse Rate 69 69 69 Respiratory Rate 41 H 37 H 35 H Blood Pressure Pulse Oximetry 94 94 94 Oxygen Delivery Method Oxygen Flow Rate 12/11/23 20:15 12/11/23 20:16 12/11/23 20:18 Pulse Rate 69 69 Respiratory Rate 37 H 39 H Blood Pressure 99/58 L Pulse Oximetry 94 93 Oxygen Delivery Method Oxygen Flow Rate 12/11/23 20:20 12/11/23 20:20 12/11/23 20:22 Pulse Rate 69 69 Respiratory Rate 42 H 37 H Blood Pressure 100/58 L Pulse Oximetry 94 95 Oxygen Delivery Method Oxygen Flow Rate 12/11/23 20:24 12/11/23 20:25 12/11/23 20:25 Pulse Rate 69 69 Respiratory Rate 34 H 35 H Blood Pressure 97/57 L Pulse Oximetry 94 94 Oxygen Delivery Method Heated High Flow Oxygen Flow Rate 40 12/11/23 21:00 Pulse Rate 68 Respiratory Rate 33 H Blood Pressure 100/55 L Pulse Oximetry 95 Oxygen Delivery Method High Flow Nasal Cannula Oxygen Flow Rate MDM - Chest Pain <Marjan Ramos MD - Last Filed: 12/12/23 07:06> Lab Data 12/11/23 11:35 12/11/23 19:42 Labs: Lab Results 12/11/23 12/11/23 12/11/23 Range/Units 11:35 13:01 15:03 WBC 12.8 H (4.5-11.0) X10^3/uL RBC 5.63 (4.5-5.9) X10^6/uL Hgb 16.1 (13.5-17.5) g/dL Hct 50.6 (41-53) % MCV 89.8 (80-100) fL MCH 28.6 (26-34) PG MCHC 31.9 (30-36) % RDW 16.2 H (11.6-14.8) % Plt Count 253 (150-400) X10^3/uL Neut % (Auto) 90.9 H (50-75) % Lymph % (Auto) 4.1 L (25-40) % [place] % (Auto) 4.8 (3-14) % Eos % (Auto) 0.1 L (2-4) % Baso % (Auto) 0.1 (0-2) % Neut # (Auto) 63721 H (8768-6403) /uL Lymph # (Auto) 500 L (3662-0227) /uL [place] # (Auto) 600 (0-900) /uL Eos # (Auto) 0 (0-450) /uL Baso # (Auto) 0 (0-100) /uL PT 49.6 H (9.4-12.5) SECONDS INR 4.3 H (0.9-1.3) APTT 60 H (25.1-36.5) SECONDS Sodium 137 (137-145) mmol/L Potassium 4.0 (3.4-5.1) mmol/L Chloride 96 L (98-107) mmol/L Carbon Dioxide 22 (22-32) mmol/L BUN 60 H (9-20) mg/dL Creatinine 3.42 H (0.66-1.25) mg/dL Estimated GFR 19 L (>60) mL/min BUN/Creatinine Ratio 17.5 (6-22) Glucose 87 (80-110) mg/dL Calcium 9.4 (8.4-10.2) mg/dL Magnesium 2.1 (1.6-2.3) mg/dL Total Bilirubin 3.1 H (0.2-1.3) mg/dL AST 108 H (17-59) IU/L ALT 56 H (<50) IU/L Alkaline Phosphatase 101 (38-126) U/L Total Creatine Kinase 280 H D (55-170) U/L Troponin I 0.287 H* 0.360 H* (0.01-0.034) ng/mL NT-Pro-B Natriuret Pep 87271 H (<125) pg/mL Total Protein 7.9 (6.3-8.2) g/dL Albumin 3.5 (3.5-5.0) g/dL Globulin 4.4 H (1.7-4.1) g/dL Albumin/Globulin Ratio 0.8 L (1.0-2.8) Lipase 133 (23-300) U/L Urine Color Urine Appearance Urine pH (4.5-8.0) Ur Specific [place] (1.000-1.035) Urine Protein (Negative) Urine Glucose (UA) (Negative) g/dL Urine Ketones (NEGATIVE) Urine Occult Blood (Negative) Urine Nitrate (Negative) Urine Bilirubin (NEGATIVE) Ur Bilirubin Confirm Urine Urobilinogen (0.2) E.U./dL Ur Leukocyte Esterase (NEGATIVE) Urine RBC (0-5/HPF) Urine WBC (0-5/HPF) Ur Squamous Epith Cells (0-5/HPF) Ur Renal Epithelial Cell (0-1/HPF) Amorphous Sediment Urine Bacteria (None) Ur Culture Indicated? Vol Urine Centrifuged SARS-CoV-2 (PCR) Negative (Negative) 12/11/23 12/11/23 Range/Units 15:15 19:42 WBC (4.5-11.0) X10^3/uL RBC (4.5-5.9) X10^6/uL Hgb (13.5-17.5) g/dL Hct (41-53) % MCV (80-100) fL MCH (26-34) PG MCHC (30-36) % RDW (11.6-14.8) % Plt Count (150-400) X10^3/uL Neut % (Auto) (50-75) % Lymph % (Auto) (25-40) % [place] % (Auto) (3-14) % Eos % (Auto) (2-4) % Baso % (Auto) (0-2) % Neut # (Auto) (4591-9126) /uL Lymph # (Auto) (6604-9866) /uL [place] # (Auto) (0-900) /uL Eos # (Auto) (0-450) /uL Baso # (Auto) (0-100) /uL PT (9.4-12.5) SECONDS INR (0.9-1.3) APTT (25.1-36.5) SECONDS Sodium 135 L (137-145) mmol/L Potassium 4.4 (3.4-5.1) mmol/L Chloride 98 (98-107) mmol/L Carbon Dioxide 22 (22-32) mmol/L BUN 70 H (9-20) mg/dL Creatinine 3.24 H (0.66-1.25) mg/dL Estimated GFR 20 L (>60) mL/min BUN/Creatinine Ratio 21.6 (6-22) Glucose 115 H (80-110) mg/dL Calcium 8.6 (8.4-10.2) mg/dL Magnesium (1.6-2.3) mg/dL Total Bilirubin (0.2-1.3) mg/dL AST (17-59) IU/L ALT (<50) IU/L Alkaline Phosphatase (38-126) U/L Total Creatine Kinase (55-170) U/L Troponin I 0.360 H* (0.01-0.034) ng/mL NT-Pro-B Natriuret Pep (<125) pg/mL Total Protein (6.3-8.2) g/dL Albumin (3.5-5.0) g/dL Globulin (1.7-4.1) g/dL Albumin/Globulin Ratio (1.0-2.8) Lipase (23-300) U/L Urine Color Dark yellow Urine Appearance Cloudy Urine pH 5.0 (4.5-8.0) Ur Specific [place] 1.025 (1.000-1.035) Urine Protein 1+ H (Negative) Urine Glucose (UA) Negative (Negative) g/dL Urine Ketones Trace H (NEGATIVE) Urine Occult Blood Trace-intact (Negative) Urine Nitrate Positive H (Negative) Urine Bilirubin 2+ H (NEGATIVE) Ur Bilirubin Confirm Cancelled Urine Urobilinogen 1.0 (0.2) E.U./dL Ur Leukocyte Esterase Negative (NEGATIVE) Urine RBC 1-5/hpf (0-5/HPF) Urine WBC 5-10/hpf H (0-5/HPF) Ur Squamous Epith Cells 0-1 /hpf (0-5/HPF) Ur Renal Epithelial Cell 1-5/hpf H (0-1/HPF) Amorphous Sediment 1+ Urine Bacteria Few (2-10) H (None) Ur Culture Indicated? Specimen cultured Vol Urine Centrifuged 10ml (spun) SARS-CoV-2 (PCR) (Negative) MDM Narrative Medical decision making narrative: CC: Critically ill, end-stage congestive heart failure, tachypneic and hypotensive Complicating co-morbidities: Known end-stage heart disease, discharged yesterday from [facility] for admit for similar complaint Data collected from: patient, medics Social determinants of health that may influence the patients condition: Patient was apparently planning to fly to [place] tomorrow to be evaluated at [facility] for heart transplant Medical records reviewed: Have requested notes from [facility] as well as Cardiology consult Differential considered: Cardiogenic shock, End-stage heart failure, respiratory failure, STEMI CODE status: Patient has an implantable AICD and wants full resuscitation Exam documented above, pertinent findings include: Patient is cachectic, overall poorly perfused with deep purple fingernail beds and toenail beds. Perfusion is poor even to central portion of his body. He is hypoxic, tachypneic and hypotensive. He is able to move all extremities. Overall air movement is poor. Lab Test results independently reviewed as above. Pertinent findings: Slight leukocytosis at 12.8 with left shift INR is elevated at 4.3 PT is 49.6, PTT is 60 Chemistries are notable for an increase in creatinine from 2 up to 3.4. Potassium is appropriate at 4.0. Lactic acid is elevated at 2.5 much more consistent with cardiogenic shock rather than septic shock (patient does not currently have any suspected source for infection) Liver studies show a bilirubin at 3.1 which is down from the , AST and ALT are slightly elevated alkaline phosphatase is unremarkable Initial troponin is elevated at 0.287. Repeat troponin is increased at 0.360 ProBNP is elevated at more than 76,000. Comparison on the is an elevation to almost 16,000 Catheterized urine sample today shows few bacteria occasional renal epithelial cells, occasional white cell positive nitrite ketones are appreciated specimen is cultured. Independently reviewed EKG: Ventricular paced rhythm at a rate of 72 Imaging studies independently reviewed: Chest x-ray shows significantly enlarged heart, radiology interpretation states ?improved interstitial prominence compared to December 06? Consultations: Dr Petit, cardiology at [facility]. Severe biventricular systolic failure. EF 10%. mild-mod Agrees with Levofed and suggesting adding dopamine as a second-line agent. Concerns for blood pressures being too low for dobutamine at this time. Agrees with trying to avoid a central line if we can. Discussion with Campus Security Officer, and Dr Petit. Concern regarding where to admit patient. If he MAY be a candidate for LVAD than [facility] would prefer that he go to the [facility]. We will contact the [facility] to see if that is any type of realistic possibility. If not hospice care is likely going to be the only additional option that we are going to have for him. 120pm Discussion with transfer center, will page Cardiac CCU attending 2pm Dr Sullivan, Cardiac Campus Security Officer [facility]. Pt was not compliant with meds and transplant team note was quite clear that the patient would not be a transplant nor higher level of intervention such as LVAD candidate. 230pm Dr Cartagena new accounts representative, Dr Guillermo cardiology both at [facility]. Campus Security Officer will consult with cardiology being the accepting service. Dr Petit is the urban and regional planner automatic equipment technician and currently in a procedure. Will discuss when he is available 445pm Discussed with Dr Petit. He will be the primary admitting physician. Reviewed with him changes including the increased troponin, increased confusion, increased mottling. Also reviewed extensive discussion had with the family. Will plan on air lift for transport to [facility] given his critical nature and worsening symptoms. 6pm Cardiology, Dr Bolaños, cardiology at [facility] who has been caring for this patient over the last week. He feels that there is still a possibility that durable mechanical support might provide some benefit in this situation despite recommendations from the [facility]. To that end, he would like to talk to [facility] to see if they might be willing to accept this patient knowing that there is not an option for him if transfer to [facility]. Air lift is currently EN route and Dr. Bolaños will talk with [place] and call me back with a plan. 615 Dr Bolaños [phone], cell [place] will need to talk with me, [facility], to initiate transfer. Call to transfer centers initiated. 620 airlift has returned to their base due to poor visibility 650 Talk with [facility] transfer center. They do have an ICU bed available. Asked that the [facility] automatic equipment technician speak directly with Dr. Bolaños to try to make a smaller loop for appropriate closed communication and better care overall. Treatments: High-flow oxygen for respiratory support, Levophed for blood pressure support. antibiotics for probable UTI, lasix for CHF, carballo for uriine output maeasurement Re-evaluations: 1pm discussion with patient and his brother regarding options and realities. Let them know that I will be talking with the [facility] but if he was not a candidate for transplant he likely is not going to be a candidate for an LVAD and at this point there is no way that getting on a plane and getting to [place] is going to be physically possible. We will review after I have spoken with the [facility] 223pm Discussed with the patient's sister at his request. Dr Fransisca Vale, retired production supervisor trainee [phone]. Discussed with her the recommendation against being eligible for heart transplant, his worsening clinical situation in terms of cardiogenic shock, elevated troponin, increasing proBNP despite hospital discharge less than 12 hours ago and worsening renal failure. She is the 1 who had talked with some of her colleagues and arranged for a consultation with at least part of the transplant team for December 27 in [place]. She understands that his situation is critical, requests that we continue with aggressive medical treatment because he ?has turned around before?. In her mind, I think she is still hoping that he will get to the point where he is healthy enough to get to [place] to be evaluated by her colleagues. I do not know that that is a realistic expectation. In light of the full and aggressive medical management up to and including CPR, will again discuss with [facility] to see if they have a bed available for transfer 4pm additional labs reviewed. Urine suggests a possible urinary tract infection. Will add ceftriaxone. Lactic acid remains elevated and again I think this does due to cardiogenic shock and he is not in septic shock. Troponin continues to increase consistent with current stressors and NSTEMI. Patient has been given 80 mg of Lasix for the heart failure and Carballo catheter has been placed for comfort as well as ability to follow urine output. Patient is currently anticoagulated presumably is taking his warfarin with an INR at 4.3. We will discuss need for heparin in light of his NSTEMI with automatic equipment technician when he calls back Discussion: 68-year-old gentleman with end-stage congestive heart failure currently in cardiogenic shock with fairly unrealistic expectations about Care, heart transplant etcetera. ICU beds are available at [facility] and will plan on transfer him him back. Apparently he had been turned down for transplant at the [facility] due to poor follow up and support availability. If he were to to be considered for an LVAD device this too requires significant follow up and support which may be challenging for him. In discussions with him it is not clear that he understands the severity of his disease nor has there been any palliative care consultation. For the time being his cardiogenic shock he will be treated with Levophed, we will add dopamine, labs are currently pending. He is currently tolerating nasal flow cannula however is increasingly tachypneic so will move to high-flow. Patient is becoming increasingly agitated, small doses of morphine have been helpful. Blood pressure currently is 87/57 with respiratory rate increasing to 54 despite heated high-flow. Oxygen saturations are at 94% measured peripherally. He has worsening overall perfusion. <Aleida Quick, DO - Last Filed: 12/12/23 03:34> Lab Data Labs: Lab Results 12/11/23 12/11/23 12/11/23 Range/Units 11:35 13:01 15:03 WBC 12.8 H (4.5-11.0) X10^3/uL RBC 5.63 (4.5-5.9) X10^6/uL Hgb 16.1 (13.5-17.5) g/dL Hct 50.6 (41-53) % MCV 89.8 (80-100) fL MCH 28.6 (26-34) PG MCHC 31.9 (30-36) % RDW 16.2 H (11.6-14.8) % Plt Count 253 (150-400) X10^3/uL Neut % (Auto) 90.9 H (50-75) % Lymph % (Auto) 4.1 L (25-40) % [place] % (Auto) 4.8 (3-14) % Eos % (Auto) 0.1 L (2-4) % Baso % (Auto) 0.1 (0-2) % Neut # (Auto) 24627 H (5770-1160) /uL Lymph # (Auto) 500 L (7681-2803) /uL [place] # (Auto) 600 (0-900) /uL Eos # (Auto) 0 (0-450) /uL Baso # (Auto) 0 (0-100) /uL PT 49.6 H (9.4-12.5) SECONDS INR 4.3 H (0.9-1.3) APTT 60 H (25.1-36.5) SECONDS Sodium 137 (137-145) mmol/L Potassium 4.0 (3.4-5.1) mmol/L Chloride 96 L (98-107) mmol/L Carbon Dioxide 22 (22-32) mmol/L BUN 60 H (9-20) mg/dL Creatinine 3.42 H (0.66-1.25) mg/dL Estimated GFR 19 L (>60) mL/min BUN/Creatinine Ratio 17.5 (6-22) Glucose 87 (80-110) mg/dL Calcium 9.4 (8.4-10.2) mg/dL Magnesium 2.1 (1.6-2.3) mg/dL Total Bilirubin 3.1 H (0.2-1.3) mg/dL AST 108 H (17-59) IU/L ALT 56 H (<50) IU/L Alkaline Phosphatase 101 (38-126) U/L Total Creatine Kinase 280 H D (55-170) U/L Troponin I 0.287 H* 0.360 H* (0.01-0.034) ng/mL NT-Pro-B Natriuret Pep 54243 H (<125) pg/mL Total Protein 7.9 (6.3-8.2) g/dL Albumin 3.5 (3.5-5.0) g/dL Globulin 4.4 H (1.7-4.1) g/dL Albumin/Globulin Ratio 0.8 L (1.0-2.8) Lipase 133 (23-300) U/L Urine Color Urine Appearance Urine pH (4.5-8.0) Ur Specific [place] (1.000-1.035) Urine Protein (Negative) Urine Glucose (UA) (Negative) g/dL Urine Ketones (NEGATIVE) Urine Occult Blood (Negative) Urine Nitrate (Negative) Urine Bilirubin (NEGATIVE) Ur Bilirubin Confirm Urine Urobilinogen (0.2) E.U./dL Ur Leukocyte Esterase (NEGATIVE) Urine RBC (0-5/HPF) Urine WBC (0-5/HPF) Ur Squamous Epith Cells (0-5/HPF) Ur Renal Epithelial Cell (0-1/HPF) Amorphous Sediment Urine Bacteria (None) Ur Culture Indicated? Vol Urine Centrifuged SARS-CoV-2 (PCR) Negative (Negative) 12/11/23 12/11/23 Range/Units 15:15 19:42 WBC (4.5-11.0) X10^3/uL RBC (4.5-5.9) X10^6/uL Hgb (13.5-17.5) g/dL Hct (41-53) % MCV (80-100) fL MCH (26-34) PG MCHC (30-36) % RDW (11.6-14.8) % Plt Count (150-400) X10^3/uL Neut % (Auto) (50-75) % Lymph % (Auto) (25-40) % [place] % (Auto) (3-14) % Eos % (Auto) (2-4) % Baso % (Auto) (0-2) % Neut # (Auto) (4089-3058) /uL Lymph # (Auto) (0622-8856) /uL [place] # (Auto) (0-900) /uL Eos # (Auto) (0-450) /uL Baso # (Auto) (0-100) /uL PT (9.4-12.5) SECONDS INR (0.9-1.3) APTT (25.1-36.5) SECONDS Sodium 135 L (137-145) mmol/L Potassium 4.4 (3.4-5.1) mmol/L Chloride 98 (98-107) mmol/L Carbon Dioxide 22 (22-32) mmol/L BUN 70 H (9-20) mg/dL Creatinine 3.24 H (0.66-1.25) mg/dL Estimated GFR 20 L (>60) mL/min BUN/Creatinine Ratio 21.6 (6-22) Glucose 115 H (80-110) mg/dL Calcium 8.6 (8.4-10.2) mg/dL Magnesium (1.6-2.3) mg/dL Total Bilirubin (0.2-1.3) mg/dL AST (17-59) IU/L ALT (<50) IU/L Alkaline Phosphatase (38-126) U/L Total Creatine Kinase (55-170) U/L Troponin I 0.360 H* (0.01-0.034) ng/mL NT-Pro-B Natriuret Pep (<125) pg/mL Total Protein (6.3-8.2) g/dL Albumin (3.5-5.0) g/dL Globulin (1.7-4.1) g/dL Albumin/Globulin Ratio (1.0-2.8) Lipase (23-300) U/L Urine Color Dark yellow Urine Appearance Cloudy Urine pH 5.0 (4.5-8.0) Ur Specific [place] 1.025 (1.000-1.035) Urine Protein 1+ H (Negative) Urine Glucose (UA) Negative (Negative) g/dL Urine Ketones Trace H (NEGATIVE) Urine Occult Blood Trace-intact (Negative) Urine Nitrate Positive H (Negative) Urine Bilirubin 2+ H (NEGATIVE) Ur Bilirubin Confirm Cancelled Urine Urobilinogen 1.0 (0.2) E.U./dL Ur Leukocyte Esterase Negative (NEGATIVE) Urine RBC 1-5/hpf (0-5/HPF) Urine WBC 5-10/hpf H (0-5/HPF) Ur Squamous Epith Cells 0-1 /hpf (0-5/HPF) Ur Renal Epithelial Cell 1-5/hpf H (0-1/HPF) Amorphous Sediment 1+ Urine Bacteria Few (2-10) H (None) Ur Culture Indicated? Specimen cultured Vol Urine Centrifuged 10ml (spun) SARS-CoV-2 (PCR) (Negative) MDM Narrative Medical decision making narrative: CC: Critically ill, end-stage congestive heart failure, tachypneic and hypotensive Complicating co-morbidities: Known end-stage heart disease, discharged yesterday from [facility] for admit for similar complaint Data collected from: patient, medics Social determinants of health that may influence the patients condition: Patient was apparently planning to fly to [place] tomorrow to be evaluated at [facility] for heart transplant Medical records reviewed: Have requested notes from [facility] as well as Cardiology consult Differential considered: Cardiogenic shock, End-stage heart failure, respiratory failure, STEMI CODE status: Patient has an implantable AICD and wants full resuscitation Exam documented above, pertinent findings include: Patient is cachectic, overall poorly perfused with deep purple fingernail beds and toenail beds. Perfusion is poor even to central portion of his body. He is hypoxic, tachypneic and hypotensive. He is able to move all extremities. Overall air movement is poor. Lab Test results independently reviewed as above. Pertinent findings: Slight leukocytosis at 12.8 with left shift INR is elevated at 4.3 PT is 49.6, PTT is 60 Chemistries are notable for an increase in creatinine from 2 up to 3.4. Potassium is appropriate at 4.0. Lactic acid is elevated at 2.5 much more consistent with cardiogenic shock rather than septic shock (patient does not currently have any suspected source for infection) Liver studies show a bilirubin at 3.1 which is down from the 19, AST and ALT are slightly elevated alkaline phosphatase is unremarkable Initial troponin is elevated at 0.287. Repeat troponin is increased at 0.360 ProBNP is elevated at more than 76,000. Comparison on the is an elevation to almost 16,000 Catheterized urine sample today shows few bacteria occasional renal epithelial cells, occasional white cell positive nitrite ketones are appreciated specimen is cultured. Independently reviewed EKG: Ventricular paced rhythm at a rate of 72 Imaging studies independently reviewed: Chest x-ray shows significantly enlarged heart, radiology interpretation states ?improved interstitial prominence compared to December 06? Consultations: Dr Petit, cardiology at [facility]. Severe biventricular systolic failure. EF 10%. mild-mod MR. Agrees with Levofed and suggesting adding dopamine as a second-line agent. Concerns for blood pressures being too low for dobutamine at this time. Agrees with trying to avoid a central line if we can. Discussion with Campus Security Officer, and Dr Petit. Concern regarding where to admit patient. If he MAY be a candidate for LVAD than [facility] would prefer that he go to the [facility]. We will contact the [facility] to see if that is any type of realistic possibility. If not hospice care is likely going to be the only additional option that we are going to have for him. 120pm Discussion with transfer center, will page Cardiac CCU attending 2pm Dr Sullivan, Cardiac Campus Security Officer [facility]. Pt was not compliant with meds and transplant team note was quite clear that the patient would not be a transplant nor higher level of intervention such as LVAD candidate. 230pm Dr Cartagena new accounts representative, Dr Guillermo cardiology both at [facility]. Campus Security Officer will consult with cardiology being the accepting service. Dr Petit is the urban and regional planner automatic equipment technician and currently in a procedure. Will discuss when he is available 445pm Discussed with Dr Petit. He will be the primary admitting physician. Reviewed with him changes including the increased troponin, increased confusion, increased mottling. Also reviewed extensive discussion had with the family. Will plan on air lift for transport to [facility] given his critical nature and worsening symptoms. 6pm Cardiology, Dr Bolaños, cardiology at [facility] who has been caring for this patient over the last week. He feels that there is still a possibility that durable mechanical support might provide some benefit in this situation despite recommendations from the [facility]. To that end, he would like to talk to [facility] to see if they might be willing to accept this patient knowing that there is not an option for him if transfer to [facility]. Air lift is currently EN route and Dr. Bolaños will talk with [place] and call me back with a plan. 615 Dr Bolaños [phone], cell [place] will need to talk with me, [facility], to initiate transfer. Call to transfer centers initiated. 620 airlift has returned to their base due to poor visibility 650 Talk with [facility] transfer center. They do have an ICU bed available. Asked that the [facility] automatic equipment technician speak directly with Dr. Bolaños to try to make a smaller loop for appropriate closed communication and better care overall. Treatments: High-flow oxygen for respiratory support, Levophed for blood pressure support. antibiotics for probable UTI, lasix for CHF, carballo for uriine output maeasurement Re-evaluations: 1pm discussion with patient and his brother regarding options and realities. Let them know that I will be talking with the [facility] but if he was not a candidate for transplant he likely is not going to be a candidate for an LVAD and at this point there is no way that getting on a plane and getting to [place] is going to be physically possible. We will review after I have spoken with the [facility] 223pm Discussed with the patient's sister at his request. Dr Fransisca Vale, retired production supervisor trainee [phone]. Discussed with her the recommendation against being eligible for heart transplant, his worsening clinical situation in terms of cardiogenic shock, elevated troponin, increasing proBNP despite hospital discharge less than 12 hours ago and worsening renal failure. She is the 1 who had talked with some of her colleagues and arranged for a consultation with at least part of the transplant team for December 27 in [place]. She understands that his situation is critical, requests that we continue with aggressive medical treatment because he ?has turned around before?. In her mind, I think she is still hoping that he will get to the point where he is healthy enough to get to [place] to be evaluated by her colleagues. I do not know that that is a realistic expectation. In light of the full and aggressive medical management up to and including CPR, will again discuss with [facility] to see if they have a bed available for transfer 4pm additional labs reviewed. Urine suggests a possible urinary tract infection. Will add ceftriaxone. Lactic acid remains elevated and again I think this does due to cardiogenic shock and he is not in septic shock. Troponin continues to increase consistent with current stressors and NSTEMI. Patient has been given 80 mg of Lasix for the heart failure and Carballo catheter has been placed for comfort as well as ability to follow urine output. Patient is currently anticoagulated presumably is taking his warfarin with an INR at 4.3. We will discuss need for heparin in light of his NSTEMI with automatic equipment technician when he calls back Discussion: 68-year-old gentleman with end-stage congestive heart failure currently in cardiogenic shock with fairly unrealistic expectations about Care, heart transplant etcetera. ICU beds are available at [facility] and will plan on transfer him him back. Apparently he had been turned down for transplant at the [facility] due to poor follow up and support availability. If he were to to be considered for an LVAD device this too requires significant follow up and support which may be challenging for him. In discussions with him it is not clear that he understands the severity of his disease nor has there been any palliative care consultation. For the time being his cardiogenic shock he will be treated with Levophed, we will add dopamine, labs are currently pending. He is currently tolerating nasal flow cannula however is increasingly tachypneic so will move to high-flow. Patient is becoming increasingly agitated, small doses of morphine have been helpful. Blood pressure currently is 87/57 with respiratory rate increasing to 54 despite heated high-flow. Oxygen saturations are at 94% measured peripherally. He has worsening overall perfusion. 12/11/23 Mank: Patient signed out to myself by Dr. Ramos. Patient was seen by myself. Is full code but unlikely to survive and high-risk for decompensation today. Was awaiting acceptance at [facility] versus [facility] after automatic equipment technician from both facilities consulted with each other and patient has been accepted now at [facility] with plan with transport with airlift. Patient is alert conversant on high-flow, Levophed with pressures in the 90s, tachypnea and significant other and brother at bedside. All are aware of patient has pretty significant end-stage CHF with cardiogenic shock. Did review patient's goals of care. Patient's labs, imaging and workup thus far were reviewed. Patient ultimately accepted at [facility] by Dr. Bolaños. Attempted to airlift patient but secondary to weather had to be sent via ALS ground. Patient has been relatively stable while being set up for transport. But did discuss with patient and family high-risk for decompensation. Critical Care Time <Marjan Ramos MD - Last Filed: 12/12/23 07:06> Critical Care Time Critical Care Time: Yes Total Critical Care Time: 67 Attestation: Critical care time is separate from other billable procedures. There is a high probability of a significant, sudden or life-threatening deterioration that requires my full and direct attention, intervention and personal management. This critical care time includes consultation with family and other consulting doctors, review of records, and interpretation of data from labs, EKGs and imaging as well as managements of cardiogenic shock, congestive heart failure, NSTEMI, extensive consultation and coordination among consultants and hospitals as well as multiple family discussions. Discharge Plan Departure Patient Disposition: [facility] Clinical Impression: Cardiogenic shock, Acute kidney injury, Non-ST elevation [place] (NSTEMI), Encephalopathy acute, Acute UTI Respiratory failure Qualifiers: Chronicity: acute on chronic Respiratory failure complication: hypoxia and hypercapnia Qualified Code(s): J96.21 - Acute and chronic respiratory failure with hypoxia Acute exacerbation of CHF (congestive heart failure) Qualifiers: Heart failure type: combined systolic and diastolic Qualified Code(s): I50.43 - Acute on chronic combined systolic (congestive) and diastolic (congestive) heart failure Prescriptions: No Action furosemide 40 mg tablet 40 mg PO BID amiodarone 200 mg tablet 400 mg PO DAILY warfarin 2.5 mg tablet 2.5 - 5 mg PO DAILY spironolactone 25 mg tablet 25 mg PO DAILY hydroxyzine HCl 25 mg Tablet 25 mg PO QID PRN (Reason: Anxiety) metoprolol succinate 25 mg tablet extended release 24 hr 25 mg PO BID Referrals: Miscellaneous,DoctorMD [Primary Care Provider] -
[2023-12-11] MEDS: NOREPINEPHRINE BITARTRATE/D5W 4 MG/250 ML PLAST..BAG 28.8 MG IV (11:19)
--- NOTE | 2023-12-11 11:22 | DI.RAD.S_ITS ---
PROCEDURE: XR CHEST 1V INDICATIONS: chest pain TECHNIQUE: One view of the chest was acquired. COMPARISON: [facility], CR, XR CHEST 2V, 07/13/2022, 11:29. [facility], CR, XR CHEST 1V, 12/06/2023, 17:08. FINDINGS: Surgical changes and devices: An AICD is seen. An apparent left atrial appendage occlusion device is seen. Lungs and pleura: There is blunting of the left costophrenic angle. There is improved interstitial prominence. No pneumothorax is seen. Mediastinum: Mediastinal contours appear normal. Heart size is prominently enlarged. Atherosclerotic calcification of the aortic arch is noted. Bones and chest wall: No suspicious bony lesions. Age-appropriate bony degenerative changes are seen. Overlying soft tissues appear unremarkable. IMPRESSION: Improved interstitial prominence compared to the recent prior chest radiograph. Small left-sided pleural effusion. Stable severe cardiomegaly. Dictated by: Denilson Dillard M.D. on 12/11/2023 at 10:47 Approved by: Denilson Dillard M.D. on 12/11/2023 at 10:48
--- NOTE | 2023-12-11 11:35 | PC.NURSE ---
Patient was seen here and discharged to [facility] for Cardiac evaluation and discharged yesterday afternoon. Patient states weakness, generalized body pain and increasing SOB. Patient states plan to fly to [place] tomorrow to have cardiac evaluation at [facility] for transplant program. Patient's extremities cold and bluish in color, breathing is rapid, RR 40-45.
[2023-12-11] MEDS: SODIUM CHLORIDE 0.9% 1,000 ML 50 ML IV (11:45)
[2023-12-11 11:49] LABS: Add Manual Diff / Slide Review NO; Basophils Absolute Auto 0 /uL (0-100); Basophils Percent Auto 0.1 % (0-2); Eosinophils Absolute Auto 0 /uL (0-450); Eosinophils Percent Auto 0.1 % (2-4); Hematocrit 50.6 % (41-53); Hemoglobin 16.1 g/dL (13.5-17.5); Lymphocytes Absolute Auto 500 /uL (1100-4500); Lymphocytes Percent Auto 4.1 % (25-40); Mean Corpuscular HGB Conc 31.9 % (30-36); Mean Corpuscular Hemoglobin 28.6 PG (26-34); Mean Corpuscular Volume 89.8 fL (80-100); Monocytes Absolute Auto 600 /uL (0-900); Monocytes Percent Auto 4.8 % (3-14); Neutrophils Absolute Auto 11700 /uL (1500-7000); Neutrophils Percent Auto 90.9 % (50-75); Platelet Count 253 X10^3/uL (150-400); Red Blood Cell Count 5.63 X10^6/uL (4.5-5.9); Red Cell Distribution Width 16.2 % (11.6-14.8); White Blood Cell Count 12.8 X10^3/uL (4.5-11.0)
[2023-12-11 11:52] LABS: INR 4.3 (0.9-1.3); Prothrombin Time 49.6 SECONDS (9.4-12.5)
[2023-12-11 11:54] LABS: PTT Partial Thromboplastin Tim 60 SECONDS (25.1-36.5)
[2023-12-11 11:56] LABS: Alanine Aminotransferase 56 IU/L (<50); Albumin 3.5 g/dL (3.5-5.0); Albumin Globulin Ratio 0.8 (1.0-2.8); Alkaline Phosphatase 101 U/L (38-126); Aspartate Aminotransferase 108 IU/L (17-59); BUN Creatinine Ratio 17.5 (6-22); Bilirubin Total 3.1 mg/dL (0.2-1.3); Blood Urea Nitrogen 60 mg/dL (9-20); Calcium 9.4 mg/dL (8.4-10.2); Carbon Dioxide 22 mmol/L (22-32); Chloride 96 mmol/L (98-107); Creatine Kinase 280 U/L (55-170); Estimated Glomerular Filt Rate 19 mL/min (>60); Globulin 4.4 g/dL (1.7-4.1); Glucose 87 mg/dL (80-110); HEMOLYSIS < 15 (0-50); Lipase 133 U/L (23-300); Magnesium 2.1 mg/dL (1.6-2.3); Sodium 137 mmol/L (137-145); Total Protein 7.9 g/dL (6.3-8.2)
[2023-12-11 12:10] LABS: Troponin I 0.287 ng/mL (0.01-0.034)
[2023-12-11 12:22] LABS: NT-proBNP (BNP-Adult 18+) 76200 pg/mL (<125)
[2023-12-11 13:22] LABS: COVID19 -Nasal RAPID Negative (Negative)
[2023-12-11] MEDS: LIDOCAINE 2% (GLYDO) 6 ML GEL TOP (15:05)
[2023-12-11] MEDS: FUROSEMIDE 80 MG in SODIUM CHLORIDE 0.9% 50 ML 116 MG IV (15:14)
[2023-12-11] MEDS: NOREPINEPHRINE BITARTRATE/D5W 4 MG/250 ML PLAST..BAG 57.6 MG IV ×2 (15:25→19:49)
[2023-12-11 15:38] LABS: Appearance Urine UA CLOUDY; Bilirubin Urine UA 2+ (NEGATIVE); Glucose Urine UA NEGATIVE (Negative); Ketones Urine UA TRACE (NEGATIVE); Leukocyte Esterase Urine UA NEGATIVE (NEGATIVE); Nitrite Urine UA POSITIVE (Negative); Occult Blood Urine UA TRACE-INTACT (Negative); Protein Urine UA 1+ (Negative); Specific Gravity Urine UA 1.025 (1.000-1.035)
[2023-12-11 15:44] LABS: Color Urine UA Dark Yellow
[2023-12-11 15:53] LABS: RBC Urine 1-5/HPF (0-5/HPF); Squamous Epithelial Cell Urine 0-1 /HPF (0-5/HPF); Urine Volume 10mL (spun)
[2023-12-11 15:54] LABS: Renal Epithelial Cells Urine 1-5/HPF (0-1/HPF); WBC Urine 5-10/HPF (0-5/HPF)
[2023-12-11 15:55] LABS: Amorphous Sediment Urine 1+; Bacteria Urine Few (2-10); Culture Indicated Urine Specimen Cultured
[2023-12-11] MEDS: cefTRIAXone 2,000 MG in SODIUM CHLORIDE 0.9% 100 ML 200 MG IV (16:32)
[2023-12-11] MEDS: MORPHINE 2 MG/ML INJ IV ×3 (17:00→19:51)
[2023-12-11 19:57] LABS: BUN Creatinine Ratio 21.6 (6-22); Blood Urea Nitrogen 70 mg/dL (9-20); Calcium 8.6 mg/dL (8.4-10.2); Carbon Dioxide 22 mmol/L (22-32); Chloride 98 mmol/L (98-107); Estimated Glomerular Filt Rate 20 mL/min (>60); Glucose 115 mg/dL (80-110); HEMOLYSIS 43 (0-50); Potassium 4.4 mmol/L (3.4-5.1); Sodium 135 mmol/L (137-145)
--- NOTE | 2023-12-11 20:01 | PC.NURSE ---
Late entry: Discussed central access w/ Dr. Ramos at time of norepi initiation. Declined.
== END 2023-12-11 21:30 | disposition short-term general hospital (02) ==
PROVIDERS: Emergency Medicine; Emergency Provider Emergency Medicine
DX: R57.0 Cardiogenic shock (principal); I21.4 Non-ST elevation (NSTEMI) myocardial infarction; J96.21 Acute and chronic respiratory failure with hypoxia; I50.43 Acute on chronic combined systolic (congestive) and diastolic (congestive) heart failure; N17.9 Acute kidney failure, unspecified; G93.40 Encephalopathy, unspecified; N39.0 Urinary tract infection, site not specified; Z79.01 Long term (current) use of anticoagulants; Z20.822 Contact with and (suspected) exposure to COVID-19
CPT/HCPCS: 36415; 71045; 80048; 80053; 81001; 82550; 83690; 83735; 83880; 84484; 85025; 85610; 85730; 87086; 87635; 93005; 96365; 96366; 96368; 96375; 96376; 99285; 99291; J0696; J1940; J2270